=== PATIENT | female | born 1970 | race Caucasian/White ===

== ENCOUNTER 2020-09-17 15:11 | Emergency (ER) | payer BC, MEDICAID ==
--- NOTE | 2020-09-17 15:44 | EDM.PDOC ---
ED HPI GENERAL MEDICAL PROBLEM - General Chief Complaint: General Stated Complaint: NAUSEA/BODY ACHES Time Seen by Provider: 09/17/20 15:41 - History of Present Illness INITIAL COMMENTS - FREE TEXT/NARRATIVE: 50-year-old female presents the emergency room with nausea and generally not feeling well she has generalized aches and pains. This is been going on for about 3-1/2 weeks. She vomited 1 time and that was in route to the emergency room this afternoon so it sounds like she has been getting worse her appetite has been poor she is not been eating or drinking hardly at all. She is generally achy all over, she does this when she has the flu. Patient denies any pain no shortness of breath no cough. 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 She has not had vaccines she has not had an influenza vaccine. 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: Endocrine/Metabolic History: Reports: Hypoparathyroidism, Obesity/BMI 30+ Other Endocrine/Metabolic History: iodine treatment on thyroid - Infectious Disease History Infectious Disease History: Reports: Chicken Pox - Past Surgical History GI Surgical History: Reports: Cholecystectomy Female Surgical History: Reports: Tubal Ligation Social & Family History - Family History Family Medical History: No Pertinent Family History - Tobacco Use Tobacco Use Status *Q: Never Tobacco User - Caffeine Use Caffeine Use: Reports: None - Recreational Drug Use Recreational Drug Use: No ED ROS GENERAL - Review of Systems Review Of Systems: See Below Constitutional: Reports: No Symptoms HEENT: Reports: No Symptoms Respiratory: Reports: No Symptoms Cardiovascular: Reports: No Symptoms Endocrine: Reports: No Symptoms GI/Abdominal: Reports: Decreased Appetite, Nausea, Vomiting. Denies: Constipation, Diarrhea : Reports: No Symptoms Musculoskeletal: Reports: Other (She has generalized achiness.). Denies: No Symptoms Skin: Reports: No Symptoms Neurological: Reports: No Symptoms Psychiatric: Reports: No Symptoms Hematologic/Lymphatic: Reports: No Symptoms Immunologic: Reports: No Symptoms ED EXAM, GENERAL - Physical Exam Exam: See Below Exam Limited By: Uncooperative General Appearance: Alert, No Apparent Distress Eye Exam: Bilateral Eye: Normal Inspection Ears: Normal External Exam, Normal Canal, Hearing Grossly Normal, Normal TMs Nose: Normal Inspection, Normal Mucosa, No Blood Throat/Mouth: Normal Inspection, Normal Lips, Normal Gums, Normal Oropharynx, Normal Voice, No Airway Compromise. No: Normal Teeth Head: Atraumatic, Normocephalic Neck: Normal Inspection, Supple, Non-Tender. No: Lymphadenopathy (L), Lymphadenopathy (R) Respiratory/Chest: No Respiratory Distress, Lungs Clear, Normal Breath Sounds Cardiovascular: No Edema, No Murmur, Tachycardia (Mild tachycardia right around 100) GI/Abdominal: Normal Bowel Sounds, Soft, Non-Tender, No Distention. No: Guarding, Rigid, Rebound Back Exam: Normal Inspection. No: CVA Tenderness (L), CVA Tenderness (R) Extremities: Normal Inspection, No Pedal Edema Neurological: Alert, Oriented Course - Vital Signs Last Recorded V/S: Last Vital Signs Temp 36.7 C 09/17/20 18:24 Pulse 73 09/17/20 18:24 Resp 16 09/17/20 18:24 BP 130/78 09/17/20 18:24 Pulse Ox 100 09/17/20 18:24 - Orders/Labs/Meds Orders: Active Orders 24 hr Category Date Time Status CULTURE URINE [RM] Stat Lab 09/17/20 17:33 Received Isolation [COMM] Routine Oth 09/17/20 16:03 Ordered Labs: Laboratory Tests 09/17/20 09/17/20 09/17/20 Range/Units 16:15 16:15 16:20 WBC 5.31 (3.98-10.04) K/mm3 RBC 4.93 (3.98-5.22) M/mm3 Hgb 14.1 (11.2-15.7) gm/dl Hct 43.0 (34.1-44.9) % MCV 87.2 (79.4-94.8) fl MCH 28.6 (25.6-32.2) pg MCHC 32.8 (32.2-35.5) g/dl RDW Std Deviation 42.4 (36.4-46.3) fL Plt Count 197 (182-369) K/mm3 MPV 11.3 (9.4-12.3) fl Neut % (Auto) 69.7 (34.0-71.1) % Lymph % (Auto) 17.5 L (19.3-51.7) % [place] % (Auto) 12.2 (4.7-12.5) % Eos % (Auto) 0 L (0.7-5.8) Baso % (Auto) 0.4 (0.1-1.2) % Neut # (Auto) 3.70 (1.56-6.13) K/mm3 Lymph # (Auto) 0.93 L (1.18-3.74) K/mm3 [place] # (Auto) 0.65 H (0.24-0.36) K/mm3 Eos # (Auto) 0.00 L (0.04-0.36) K/mm3 Baso # (Auto) 0.02 (0.01-0.08) K/mm3 Manual Slide Review Normal smear Sodium 142 (136-145) mEq/L Potassium 3.0 L (3.5-5.1) mEq/L Chloride 102 (98-107) mEq/L Carbon Dioxide 27 (21-32) mEq/L Anion Gap 16.0 H (5-15) BUN 10 (7-18) mg/dL Creatinine 0.9 (0.55-1.02) mg/dL Est Cr Clr Drug Dosing 71.91 mL/min Estimated GFR (MDRD) > 60 (>60) mL/min BUN/Creatinine Ratio 11.1 L (14-18) Glucose 101 (74-106) mg/dL Calcium 8.3 L (8.5-10.1) mg/dL Total Bilirubin 0.6 (0.2-1.0) mg/dL AST 36 (15-37) U/L ALT 43 (14-59) U/L Alkaline Phosphatase 60 (46-116) U/L Total Protein 7.6 (6.4-8.2) g/dl Albumin 3.3 L (3.4-5.0) g/dl Globulin 4.3 gm/dL Albumin/Globulin Ratio 0.8 L (1-2) Urine Color (Yellow) Urine Appearance (Clear) Urine pH (5.0-8.0) Ur Specific [place] (1.005-1.030) Urine Protein (Negative) Urine Glucose (UA) (Negative) Urine Ketones (Negative) Urine Occult Blood (Negative) Urine Nitrite (Negative) Urine Bilirubin (Negative) Urine Urobilinogen (0.2-1.0) Ur Leukocyte Esterase (Negative) Urine RBC (0-5) /hpf Urine WBC (0-5) /hpf Ur Squamous Epith Cells (0-5) /hpf Urine Bacteria (FEW) /hpf Urine Mucus (FEW) /hpf Influenza Type A RNA Negative (NEGATIVE) Influenza Type B RNA Negative (NEGATIVE) SARS-CoV-2 RNA (CORNELIO) Positive H (NEGATIVE) 09/17/20 Range/Units 17:33 WBC (3.98-10.04) K/mm3 RBC (3.98-5.22) M/mm3 Hgb (11.2-15.7) gm/dl Hct (34.1-44.9) % MCV (79.4-94.8) fl MCH (25.6-32.2) pg MCHC (32.2-35.5) g/dl RDW Std Deviation (36.4-46.3) fL Plt Count (182-369) K/mm3 MPV (9.4-12.3) fl Neut % (Auto) (34.0-71.1) % Lymph % (Auto) (19.3-51.7) % [place] % (Auto) (4.7-12.5) % Eos % (Auto) (0.7-5.8) Baso % (Auto) (0.1-1.2) % Neut # (Auto) (1.56-6.13) K/mm3 Lymph # (Auto) (1.18-3.74) K/mm3 [place] # (Auto) (0.24-0.36) K/mm3 Eos # (Auto) (0.04-0.36) K/mm3 Baso # (Auto) (0.01-0.08) K/mm3 Manual Slide Review Sodium (136-145) mEq/L Potassium (3.5-5.1) mEq/L Chloride (98-107) mEq/L Carbon Dioxide (21-32) mEq/L Anion Gap (5-15) BUN (7-18) mg/dL Creatinine (0.55-1.02) mg/dL Est Cr Clr Drug Dosing mL/min Estimated GFR (MDRD) (>60) mL/min BUN/Creatinine Ratio (14-18) Glucose (74-106) mg/dL Calcium (8.5-10.1) mg/dL Total Bilirubin (0.2-1.0) mg/dL AST (15-37) U/L ALT (14-59) U/L Alkaline Phosphatase (46-116) U/L Total Protein (6.4-8.2) g/dl Albumin (3.4-5.0) g/dl Globulin gm/dL Albumin/Globulin Ratio (1-2) Urine Color Yellow (Yellow) Urine Appearance Slt cloudy H (Clear) Urine pH 8.5 H (5.0-8.0) Ur Specific Juda 1.020 (1.005-1.030) Urine Protein 1+ H (Negative) Urine Glucose (UA) Negative (Negative) Urine Ketones 2+ H (Negative) Urine Occult Blood Trace-intact H (Negative) Urine Nitrite Negative (Negative) Urine Bilirubin 1+ H (Negative) Urine Urobilinogen >=8.0 H (0.2-1.0) Ur Leukocyte Esterase 1+ H (Negative) Urine RBC 5-10 H (0-5) /hpf Urine WBC 5-10 H (0-5) /hpf Ur Squamous Epith Cells 10-20 H (0-5) /hpf Urine Bacteria Few (FEW) /hpf Urine Mucus Few (FEW) /hpf Influenza Type A RNA (NEGATIVE) Influenza Type B RNA (NEGATIVE) SARS-CoV-2 RNA (CORNELIO) (NEGATIVE) Meds: Medications Discontinued Medications Generic Name Dose Route Start Last Admin Trade Name Freq PRN Reason Stop Dose Admin Lactated Ringer's 1,000 mls @ 999 mls/hr 09/17/20 16:01 09/17/20 16:15 Ringers, Lactated IV 09/17/20 17:01 999 mls/hr .BOLUS ONE Administration Lactated Ringer's 1,000 mls @ 999 mls/hr 09/17/20 16:02 09/17/20 16:15 Ringers, Lactated IV 09/17/20 17:02 999 mls/hr .BOLUS ONE Administration Ondansetron HCl 4 mg 09/17/20 16:02 09/17/20 16:15 Zofran IVPUSH 09/17/20 16:03 4 mg ONETIME ONE Administration Potassium Chloride 20 meq 09/17/20 18:05 09/17/20 18:24 Klor-Con M20 PO 09/17/20 18:06 20 meq ONETIME ONE Administration - Re-Assessments/Exams Free Text/Narrative Re-Assessment/Exam: 09/17/20 18:19 She was given IV fluids that she was mildly tachycardic and without significant p.o. intake for several weeks. She was also given a single dose of Zofran feels much better labs were checked remarkable for some hypokalemia at 3.0. Influenza screening was negative Covid did come back positive which could very well be causing her symptoms. At this point we will discharge the patient with prescription for Zofran oral potassium and recommend she start magnesium oxide. 09/17/20 18:31 Analysis is contaminated. I discussed this with the patient she wants to get going we will wait on culture and sensitivity but the patient is not having any UTI-like symptoms at this time. Patient agrees with holding off on antibiotics. Departure - Departure Time of Disposition: 18:27 Disposition: Home, Self-Care 01 Clinical Impression: COVID-19 - Discharge Information Prescriptions: Potassium Chloride [Klor-Con M20] 20 meq PO TID #8 tab.er Ondansetron [Zofran Odt] 8 mg PO Q6H PRN #8 tab.rapdis PRN Reason: Nausea/Vomiting Referrals: PCP,None [Primary Care Provider] - Forms: ED Department Discharge Additional Instructions: Return to the emergency room with any questions problems or worsening symptoms. Take the Zofran 1/2 to 1 tablet every 6 hours as needed for nausea and vomiting. Take the potassium 1 preferably every 8 hours however if you need to cut it back to every 12 hours that is okay but take them until they are all gone. 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 You have COVID-19. It is essential that you self isolate at home. You should stay home in isolation for 1 week after your symptoms have completely resolved and you are not taking any medication for aches pains nausea or any other symptoms. Sepsis Event Note (ED) - Evaluation Sepsis Screening Result: No Definite Risk - Focused Exam Vital Signs: Vital Signs Temp Pulse Resp BP Pulse Ox 09/17/20 18:24 36.7 C 73 16 130/78 100 09/17/20 15:21 36.9 C 104 H 14 133/64 94 L - My Orders Last 24 Hours: My Active Orders 09/17/20 16:03 Isolation [COMM] Routine 09/17/20 17:33 CULTURE URINE [RM] Stat - Assessment/Plan Last 24 Hours: My Active Orders 09/17/20 16:03 Isolation [COMM] Routine 09/17/20 17:33 CULTURE URINE [RM] Stat
[2020-09-17] MEDS ORDERED: Lactated Ringers 1,000 ML IV ONE ×2 (16:01→16:02)
[2020-09-17] MEDS ORDERED: Ondansetron 4 MG/2 ML SDV IVPUSH ONE (16:02)
[2020-09-17 17:10] LABS: CORONAVIRUS COVID-19 NAA POSITIVE (NEGATIVE)
[2020-09-17] MEDS ORDERED: Potassium Chloride 20 MEQ Tab.ER PO ONE (18:05)
== END 2020-09-17 18:48 | disposition home or self-care (01) ==
LOC: JD.ED 15:11
DX: U07.1 COVID-19 (principal); E66.9 Obesity, unspecified; Z68.29 Body mass index [BMI] 29.0-29.9, adult
CPT/HCPCS: 0240U; 36415; 80053; 81001; 85025; 87086; 96361; 96374; 99284; A9270; J2405; J7120

== ENCOUNTER 2020-09-23 07:12 | Emergency (ER) | payer MEDICAID ==
[2020-09-23] MEDS ORDERED: Ondansetron 4 MG Tab.DIS PO ONE (07:46)
[2020-09-23] MEDS ORDERED: Ketorolac 30 MG/ML SDV IM ONE (07:46)
--- NOTE | 2020-09-23 08:25 | EDM.PDOC ---
ED HPI GENERAL MEDICAL PROBLEM - General Chief Complaint: Back Pain or Injury Stated Complaint: COVID + Time Seen by Provider: 09/23/20 07:31 Source of Information: Reports: Patient, RN Notes Reviewed - History of Present Illness INITIAL COMMENTS - FREE TEXT/NARRATIVE: 50 yr old female that is having L lower back pain. States this started during the night. Has had back problems in the past. Does not radiate to leg, abd or groin. Has not taken anything for it. She has not been feeling well for "several weeks" Was seen here in the ED 6 days ago, tested positive for covid at that time. Denies bladder sx today. Continues to feel a lot of fatigue, occasional cough. 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: Musculoskeletal History: Reports: Fracture Other Musculoskeletal History: right broken ankle Endocrine/Metabolic History: Reports: Hypoparathyroidism, Obesity/BMI 30+ Other Endocrine/Metabolic History: iodine treatment on thyroid - Infectious Disease History Infectious Disease History: Reports: Chicken Pox, Novel Coronavirus - Past Surgical History HEENT Surgical History: Reports: Oral Surgery Other HEENT Surgeries/Procedures: "several teeth removed" GI Surgical History: Reports: Cholecystectomy Female Surgical History: Reports: Tubal Ligation Social & Family History - Family History Family Medical History: No Pertinent Family History - Tobacco Use Tobacco Use Status *Q: Never Tobacco User Second Hand Smoke Exposure: Yes - Caffeine Use Caffeine Use: Reports: Soda - Recreational Drug Use Recreational Drug Use: No ED ROS GENERAL - Review of Systems Review Of Systems: See Below Constitutional: Reports: Chills. Denies: Fever HEENT: Reports: No Symptoms Respiratory: Reports: Cough. Denies: Shortness of Breath Cardiovascular: Denies: Chest Pain GI/Abdominal: Reports: Nausea. Denies: Abdominal Pain, Diarrhea, Vomiting Musculoskeletal: Reports: Back Pain Skin: Denies: Rash Neurological: Reports: Dizziness ED EXAM,LOWER BACK PAIN/INJURY - Physical Exam Exam: See Below General Appearance: Alert, No Apparent Distress Head: Atraumatic Neck: Supple Respiratory/Chest: No Respiratory Distress, Lungs Clear, Normal Breath Sounds Cardiovascular: Regular Rate, Rhythm GI/Abdominal: Soft, Non-Tender Back Exam: CVA Tenderness (L), Paraspinal Tenderness (L low back) Extremities: Normal Inspection Neurological: Alert, No Motor/Sensory Deficits Skin Exam: Warm, Dry, Normal Color Course - Vital Signs Last Recorded V/S: Last Vital Signs Temp 97.6 F 09/23/20 07:28 Pulse 60 09/23/20 07:28 Resp 16 09/23/20 07:28 BP 110/63 09/23/20 07:28 Pulse Ox 99 09/23/20 07:28 - Orders/Labs/Meds Labs: Laboratory Tests 09/23/20 09/23/20 09/23/20 Range/Units 08:16 09:01 09:01 WBC 7.56 (3.98-10.04) K/mm3 RBC 4.97 (3.98-5.22) M/mm3 Hgb 14.0 (11.2-15.7) gm/dl Hct 44.0 (34.1-44.9) % MCV 88.5 (79.4-94.8) fl MCH 28.2 (25.6-32.2) pg MCHC 31.8 L (32.2-35.5) g/dl RDW Std Deviation 42.2 (36.4-46.3) fL Plt Count 311 D (182-369) K/mm3 MPV 11.0 (9.4-12.3) fl Neut % (Auto) 83.1 H (34.0-71.1) % Lymph % (Auto) 10.3 L (19.3-51.7) % [place] % (Auto) 5.0 (4.7-12.5) % Eos % (Auto) 0.8 (0.7-5.8) Baso % (Auto) 0.5 (0.1-1.2) % Neut # (Auto) 6.28 H (1.56-6.13) K/mm3 Lymph # (Auto) 0.78 L (1.18-3.74) K/mm3 [place] # (Auto) 0.38 H (0.24-0.36) K/mm3 Eos # (Auto) 0.06 (0.04-0.36) K/mm3 Baso # (Auto) 0.04 (0.01-0.08) K/mm3 Manual Slide Review Normal smear C-Reactive Protein 1.7 H* (<1.0) mg/dL Urine Color Dark yellow (Yellow) Urine Appearance Cloudy H (Clear) Urine pH 7.0 (5.0-8.0) Ur Specific [place] 1.020 (1.005-1.030) Urine Protein 2+ H (Negative) Urine Glucose (UA) Negative (Negative) Urine Ketones Negative (Negative) Urine Occult Blood 3+ H (Negative) Urine Nitrite Negative (Negative) Urine Bilirubin 1+ H (Negative) Urine Urobilinogen 0.2 (0.2-1.0) Ur Leukocyte Esterase Negative (Negative) Urine RBC 75-100 H (0-5) /hpf Urine WBC 0-5 (0-5) /hpf Ur Squamous Epith Cells 0-5 (0-5) /hpf Urine Bacteria Few (FEW) /hpf Urine Mucus Few (FEW) /hpf Meds: Medications Discontinued Medications Generic Name Dose Route Start Last Admin Trade Name Harlan PRN Reason Stop Dose Admin Ketorolac Tromethamine 30 mg 09/23/20 07:46 09/23/20 07:52 Toradol IM 09/23/20 07:47 30 mg ONETIME ONE Administration Ondansetron HCl 4 mg 09/23/20 07:46 09/23/20 07:52 Zofran Odt PO 09/23/20 07:47 4 mg ONETIME ONE Administration - Re-Assessments/Exams Free Text/Narrative Re-Assessment/Exam: 09/24/20 07:14 Pt has a lot of RBc's in her urine but reported to be having her MP. No UTI, WBC nl. Have given torodol IM and that has helped her. Discharge instr. as documented. Departure - Departure Time of Disposition: 10:37 Disposition: Home, Self-Care 01 Condition: Fair Clinical Impression: Back pain Qualifiers: Back pain location: low back pain Chronicity: acute Back pain laterality: left Sciatica presence: without sciatica Qualified Code(s): M54.5 - Low back pain - Discharge Information Instructions: Acute Back Pain, Adult Referrals: PCP,None [Primary Care Provider] - Forms: ED Department Discharge Additional Instructions: Rest back, no heavy lifting, take ramila 3 to 4 times daily for discomfort as needed. Alternate heat and ice as needed. Follow up with your regular medical provider in 5 to 7 days if not back to normal as expected. Sepsis Event Note (ED) - Evaluation Sepsis Screening Result: No Definite Risk
== END 2020-09-23 11:00 | disposition home or self-care (01) ==
LOC: JD.ED 07:12
DX: M54.5 Low back pain (principal); E20.9 Hypoparathyroidism, unspecified; E66.9 Obesity, unspecified; Z68.37 Body mass index [BMI] 37.0-37.9, adult; Z77.22 Contact with and (suspected) exposure to environmental tobacco smoke (acute) (chronic); Z86.16 Personal history of COVID-19
CPT/HCPCS: 36415; 81001; 85025; 86140; 96372; 99283; A9270; J1885

== ENCOUNTER 2020-09-27 19:01 | Inpatient (IN) | payer MEDICAID ==
[2020-09-27] MEDS ORDERED: Sodium Chloride 0.9% 10 ML Syringe FLUSH PRN (19:35)
[2020-09-27] MEDS ORDERED: Ondansetron 4 MG/2 ML SDV IVPUSH ONE (19:35)
[2020-09-27] MEDS ORDERED: HYDROmorphone 0.5 MG/0.5 ML Syringe IVPUSH ONE (19:36)
[2020-09-27] MEDS ORDERED: Sodium Chloride 0.9% 1,000 ML IV SCH (19:45)
--- NOTE | 2020-09-27 19:46 | EDM.PDOC ---
ED HPI GENERAL MEDICAL PROBLEM - General Chief Complaint: Respiratory Problem Stated Complaint: sob covid positive cough Time Seen by Provider: 09/27/20 19:25 Source of Information: Reports: Patient History Limitations: Reports: No Limitations - History of Present Illness INITIAL COMMENTS - FREE TEXT/NARRATIVE: The patient presents with back pain, chest pain and shortness of breath. This started a few days ago but she has not been feeling good since August 31. She was having generalized weakness, fever, chills, and not feeling well. She was seen here about 2 weeks ago and was found to be COVID 19 positive. She has been at home and the state has cleared her but she feels worse. She has back pain and now she developed chest pain with shortness of breath. She has some coughing at times and she has a fever and chills at times. She has generalized weakness and just does not feel well. She has no medical problems such as heart disease, diabetes, hypertension or hypercholesterolemia. She has no history of DVT or PE. She does not smoke. She has no history of asthma or COPD. Onset: Gradual Duration: Week(s): Location: Reports: Chest, Back Quality: Reports: Sharp Severity: Moderate Improves with: Reports: None Worsens with: Reports: None Associated Symptoms: Reports: Chest Pain, Cough, Fever/Chills, Shortness of Breath. 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: Musculoskeletal History: Reports: Fracture Other Musculoskeletal History: right broken ankle Endocrine/Metabolic History: Reports: Hypoparathyroidism, Obesity/BMI 30+ Other Endocrine/Metabolic History: iodine treatment on thyroid - Infectious Disease History Infectious Disease History: Reports: Chicken Pox, Novel Coronavirus - Past Surgical History HEENT Surgical History: Reports: Oral Surgery Other HEENT Surgeries/Procedures: "several teeth removed" GI Surgical History: Reports: Cholecystectomy Female Surgical History: Reports: Tubal Ligation Social & Family History - Family History Family Medical History: No Pertinent Family History - Tobacco Use Tobacco Use Status *Q: Never Tobacco User - Caffeine Use Caffeine Use: Reports: Soda - Recreational Drug Use Recreational Drug Use: No ED ROS GENERAL - Review of Systems Review Of Systems: See Below Constitutional: Reports: Fever, Chills, Malaise, Weakness, Fatigue HEENT: Reports: No Symptoms Respiratory: Reports: Shortness of Breath, Cough Cardiovascular: Reports: Chest Pain Endocrine: Reports: No Symptoms GI/Abdominal: Reports: No Symptoms : Reports: No Symptoms Musculoskeletal: Reports: Muscle Stiffness Skin: Reports: No Symptoms ED EXAM, GENERAL - Physical Exam Exam: See Below Exam Limited By: No Limitations General Appearance: Alert, No Apparent Distress Ears: Normal External Exam Nose: Normal Inspection Head: Atraumatic, Normocephalic Neck: Normal Inspection Respiratory/Chest: No Respiratory Distress, Lungs Clear, Normal Breath Sounds Cardiovascular: Regular Rate, Rhythm, No Edema, No Murmur GI/Abdominal: Soft, Non-Tender, No Organomegaly, No Mass Back Exam: Normal Inspection Extremities: Normal Inspection #1 Interpretation EKG Date: 09/27/20 Time: 20:10 Rhythm: NSR Rate (Beats/Min): 92 [place]: Normal P-Wave: Present QRS: Normal ST-T: Normal QT: Prolonged Course - Vital Signs Last Recorded V/S: Last Vital Signs Temp 97.6 F 09/27/20 19:13 Pulse 107 H 09/27/20 19:13 Resp 20 09/27/20 19:13 BP 137/85 09/27/20 19:13 Pulse Ox 96 09/27/20 19:13 - Orders/Labs/Meds Orders: Active Orders 24 hr Category Date Time Status Cardiac Monitoring [RC] . DIRECTED Care 09/27/20 19:35 Active EKG Documentation Completion [RC] STAT Care 09/27/20 19:36 Active Peripheral IV Care [RC] . DIRECTED Care 09/27/20 19:36 Active Ang Chest [CT] Stat Exams 09/27/20 19:37 Taken CULTURE BLOOD [BC] Stat Lab 09/27/20 21:47 Ordered CULTURE BLOOD [BC] Stat Lab 09/27/20 21:47 Ordered LACTIC ACID W/ REFLEX [LACTATE SEPSIS W/ REFLEX] [CHEM] Lab 09/27/20 21:47 Ordered Stat TSH [CHEM] Stat Lab 09/27/20 21:54 Ordered Azithromycin [Zithromax] 500 mg Med 09/27/20 21:48 Active Sodium Chloride 0.9% [Normal Saline (AdvBag)] 250 ml IV ONETIME Sodium Chloride 0.9% [Normal Saline] 1,000 ml Med 09/27/20 19:45 Active IV .BOLUS Sodium Chloride 0.9% [Normal Saline] 100 ml Med 09/27/20 20:00 Active IV ASDIRECTED Sodium Chloride 0.9% [Saline Flush] Med 09/27/20 20:00 Active 10 ml FLUSH ASDIRECTED Sodium Chloride 0.9% [Saline Flush] Med 09/27/20 19:35 Active 10 ml FLUSH ASDIRECTED PRN cefTRIAXone [Rocephin] 2 gm Med 09/27/20 21:47 Active Sodium Chloride 0.9% [Normal Saline] 100 ml IV ONETIME Blood Culture x2 Reflex Set [OM.PC] Stat Oth 09/27/20 21:47 Ordered ED Antiemetic Medication Reflex [OM.PC] Stat Oth 09/27/20 19:36 Ordered Peripheral IV Insertion Adult [OM.PC] Stat Oth 09/27/20 19:35 Ordered Labs: Laboratory Tests 09/27/20 09/27/20 09/27/20 Range/Units 20:05 20:05 20:05 WBC 15.98 H (3.98-10.04) K/mm3 RBC 4.86 (3.98-5.22) M/mm3 Hgb 13.9 (11.2-15.7) gm/dl Hct 42.8 (34.1-44.9) % MCV 88.1 (79.4-94.8) fl MCH 28.6 (25.6-32.2) pg MCHC 32.5 (32.2-35.5) g/dl RDW Std Deviation 42.0 (36.4-46.3) fL Plt Count 422 H D (182-369) K/mm3 MPV 10.7 (9.4-12.3) fl Neut % (Auto) 80.3 H (34.0-71.1) % Lymph % (Auto) 8.5 L (19.3-51.7) % [place] % (Auto) 10.8 (4.7-12.5) % Eos % (Auto) 0.1 L (0.7-5.8) Baso % (Auto) 0.1 (0.1-1.2) % Neut # (Auto) 12.84 H (1.56-6.13) K/mm3 Lymph # (Auto) 1.36 (1.18-3.74) K/mm3 [place] # (Auto) 1.72 H (0.24-0.36) K/mm3 Eos # (Auto) 0.01 L (0.04-0.36) K/mm3 Baso # (Auto) 0.02 (0.01-0.08) K/mm3 Manual Slide Review Abnormal smear D-Dimer, Quantitative 1.06 H (0.19-0.50) mg/L Sodium 140 (136-145) mEq/L Potassium 3.5 (3.5-5.1) mEq/L Chloride 101 (98-107) mEq/L Carbon Dioxide 28 (21-32) mEq/L Anion Gap 14.5 (5-15) BUN 11 (7-18) mg/dL Creatinine 0.9 (0.55-1.02) mg/dL Est Cr Clr Drug Dosing 69.23 mL/min Estimated GFR (MDRD) > 60 (>60) mL/min BUN/Creatinine Ratio 12.2 L (14-18) Glucose 115 H (74-106) mg/dL Calcium 8.8 (8.5-10.1) mg/dL Magnesium 2.0 (1.8-2.4) mg/dl Total Bilirubin 0.7 (0.2-1.0) mg/dL AST 23 (15-37) U/L ALT 44 (14-59) U/L Alkaline Phosphatase 66 (46-116) U/L Troponin I < 0.017 (0.00-0.056) ng/mL C-Reactive Protein 23.6 H* (<1.0) mg/dL Total Protein 7.9 (6.4-8.2) g/dl Albumin 3.1 L (3.4-5.0) g/dl Globulin 4.8 gm/dL Albumin/Globulin Ratio 0.7 L (1-2) - Re-Assessments/Exams Free Text/Narrative Re-Assessment/Exam: 09/27/20 19:46 I ordered an IV NS 1L bolus, zofran 4mg IV, dilaudid 0.5mg IV, labs, EKG and CT angio. 09/27/20 21:57 Her EKG shows a NSR with no acute changes. She has a prolonged QT interval. Her WBC was elevated at 15.98. Her D-dimer is elevated at 1.06. Her troponin is negative. Her CRP is elevated at 23.6. Her CT shows an occlusive filling defect in a single segmental branch of the left lower lobe pulmonary artery. Small clot burden. No evidence of right heart strain. Left hilar mass which narrows the left lower lobe bronchus, concerning for neoplasm. There is associated mediastinal and hilar adenopathy. Consolidation in the left lower lobe which could represent pneumonia or postobstructive pneumonitis. 2.6 X 2.1 partially calcified left lobe thyroid lesion. Recommend thyroid US. 6mm right upper lobe pulmonary nodule. I ordered eliquis 5mg by mouth. I also ordered blood cultures, lactic acid, and rocephin. I feel she may need to be admitted. I called Dr Giang and he agreed to the admission. I was going to add some zithromax IV but her QT is prolonged and I already gave her zofran. I have also ordered a TSH. She has a thyroid lesion. She says in the past she had hyperthyroidism and had treatment for that and it has not been a problem. 09/27/20 22:04 The patient is not hypoxic so she will be admitted to observation. 09/27/20 22:04 I asked her again is she ever smoked and she said maybe 5 cigarettes total. Departure - Departure Time of Disposition: 22:05 Disposition: Refer to Observation Condition: Fair Clinical Impression: Mass of left lung, Nodule of left lung, Thyroid lesion Pneumonia Qualifiers: Pneumonia type: due to unspecified organism Laterality: left Lung location: lower lobe of lung Qualified Code(s): J18.9 - Pneumonia, unspecified organism Pulmonary embolism Qualifiers: Pulmonary embolism type: other Chronicity: acute Acute cor pulmonale presence: without acute cor pulmonale Qualified Code(s): I26.99 - Other pulmonary embolism without acute cor pulmonale - Discharge Information Referrals: PCP,None [Primary Care Provider] - Forms: ED Department Discharge Sepsis Event Note (ED) - Evaluation Sepsis Screening Result: No Definite Risk - Focused Exam Vital Signs: Vital Signs Temp Pulse Resp BP Pulse Ox 09/27/20 19:13 97.6 F 107 H 20 137/85 96 - My Orders Last 24 Hours: My Active Orders 09/27/20 19:35 Cardiac Monitoring [RC] . DIRECTED Sodium Chloride 0.9% [Saline Flush] 10 ml FLUSH ASDIRECTED PRN Peripheral IV Insertion Adult [OM.PC] Stat 09/27/20 19:36 EKG Documentation Completion [RC] STAT Peripheral IV Care [RC] . DIRECTED ED Antiemetic Medication Reflex [OM.PC] Stat 09/27/20 19:37 Ang Chest [CT] Stat 09/27/20 19:45 Sodium Chloride 0.9% [Normal Saline] 1,000 ml IV .BOLUS 09/27/20 20:00 Sodium Chloride 0.9% [Normal Saline] 100 ml IV ASDIRECTED Sodium Chloride 0.9% [Saline Flush] 10 ml FLUSH ASDIRECTED 09/27/20 21:47 CULTURE BLOOD [BC] Stat CULTURE BLOOD [BC] Stat LACTIC ACID W/ REFLEX [LACTATE SEPSIS W/ REFLEX] [CHEM] Stat cefTRIAXone [Rocephin] 2 gm Sodium Chloride 0.9% [Normal Saline] 100 ml IV ONETIME Blood Culture x2 Reflex Set [OM.PC] Stat 09/27/20 21:48 Azithromycin [Zithromax] 500 mg Sodium Chloride 0.9% [Normal Saline (AdvBag)] 250 ml IV ONETIME 09/27/20 21:54 TSH [CHEM] Stat - Assessment/Plan Last 24 Hours: My Active Orders 09/27/20 19:35 Cardiac Monitoring [RC] . DIRECTED Sodium Chloride 0.9% [Saline Flush] 10 ml FLUSH ASDIRECTED PRN Peripheral IV Insertion Adult [OM.PC] Stat 09/27/20 19:36 EKG Documentation Completion [RC] STAT Peripheral IV Care [RC] . DIRECTED ED Antiemetic Medication Reflex [OM.PC] Stat 09/27/20 19:37 Ang Chest [CT] Stat 09/27/20 19:45 Sodium Chloride 0.9% [Normal Saline] 1,000 ml IV .BOLUS 09/27/20 20:00 Sodium Chloride 0.9% [Normal Saline] 100 ml IV ASDIRECTED Sodium Chloride 0.9% [Saline Flush] 10 ml FLUSH ASDIRECTED 09/27/20 21:47 CULTURE BLOOD [BC] Stat CULTURE BLOOD [BC] Stat LACTIC ACID W/ REFLEX [LACTATE SEPSIS W/ REFLEX] [CHEM] Stat cefTRIAXone [Rocephin] 2 gm Sodium Chloride 0.9% [Normal Saline] 100 ml IV ONETIME Blood Culture x2 Reflex Set [OM.PC] Stat 09/27/20 21:48 Azithromycin [Zithromax] 500 mg Sodium Chloride 0.9% [Normal Saline (AdvBag)] 250 ml IV ONETIME 09/27/20 21:54 TSH [CHEM] Stat
[2020-09-27] MEDS ORDERED: Iopamidol 755 Mg/ML 100 ML Bottle IVPUSH ONE (19:52)
[2020-09-27] MEDS ORDERED: Sodium Chloride 0.9% 100 ML IV SCH (20:00)
[2020-09-27] MEDS ORDERED: Sodium Chloride 0.9% 10 ML Syringe FLUSH SCH (20:00)
[2020-09-27] MEDS ORDERED: cefTRIAXone 2 GM in Sodium Chloride 0.9% 100 ML IV ONE (21:47)
[2020-09-27] MEDS ORDERED: Apixaban 5 MG Tab PO ONE (21:48)
[2020-09-27] MEDS ORDERED: Azithromycin 500 MG in Sodium Chloride 0.9% 250 ML IV ONE (21:48)
[2020-09-27] MEDS ORDERED: HYDROmorphone 1 MG/ML Syringe IVPUSH ONE (22:01)
[2020-09-27] MEDS ORDERED: Ibuprofen 600 MG Tab PO ONE (23:06)
[2020-09-28] MEDS ORDERED: HYDROmorphone 1 MG/ML Syringe IVPUSH PRN (00:39)
--- NOTE | 2020-09-28 07:26 | PCM.HP.2 ---
H&P History of Present Illness - General Date of Service: 09/28/20 Admit Problem/Dx: Admission Diagnosis/Problem Admission Diagnosis/Problem Pneumonia Source of Information: Patient, Old Records, Provider, RN, RN Notes Reviewed History Limitations: Reports: No Limitations - History of Present Illness Initial Comments - Free Text/Narative: This is a 50-year-old female who presents to ED on the evening hours of 09/27/2020 complaining of back pain, chest pain, and shortness of breath. She reports the symptoms started a few days ago however she has been feeling poorly since F ebruary 10. She states that she has had worsening generalized weakness, fever, chills, and not feeling well. Was diagnosed with COVID-19 about 2 weeks ago and has been home since then. The state has cleared her from her quarantine but she continues to feel bad. She reports she has back pain and has now developed chest pain and shortness of breath. She reports she has coughing fits at times and has had a fever and chills at home. She reports generalized weakness and just does not feel well. Denies any prior heart disease, diabetes, hypertension, or hypercholesterolemia. No history of DVT, PE, asthma, or COPD. She does not smoke. In the ED twelve-lead EKG is obtained showing a sinus rhythm at 92 bpm with a prolonged QTC. There are no signs of any ischemia. Temp is 97.6. Pulse 107. Respirations 20. Blood pressure 137/85. Pulse ox 96%. Labs are obtained showing a leukocytosis of 15.98. Hemoglobin 13.9. She is normocytic. Platelets are elevated at 422,000. Neutrophils are elevated at 12.84. D-dimer is 1.06. Sodium 140. Potassium 3.5. Chloride 101. Carbon oxide 28. Anion gap is 14.5. BUN is 11. Creatinine 0.9. GFR greater than 60. Glucose is 115. Calcium 8.8. Magnesium 2.0. Bilirubin 0.7. AST is 23, ALT 44, alkaline phosphatase 66. Troponin is less than 0.017. CRP is very high at 23.6. Albumin is low at 3.1. Lactic acid is low at 0.9 and TSH is 1.745. She is given IV fluids, Zofran for nausea, Dilaudid for pain, and a CT angiogram of her chest is obtained.This is interpreted by Dr. Adamson, radiologist, as: 1. Possible minimal pulmonary embolism within a subsegmental branch within the left lower lung. 2. Focal consolidation within the left lower chest possibly due to infarct or pneumonia. 3. 6 mm nodule within the right upper lung as well as mild mediastinal and hilar adenopathy which is nonspecific. Follow-up contrast- enhanced study could be considered in 6 months. This would occur in March 2021. 4. Other findings as noted above which are nonacute. Cultures were obtained and patient started on Rocephin. Plan will start azithromycin but she was given Zofran and her QT is already prolonged. Per the ED note patient is aware of her thyroid problems that she has a history of hyperthyroidism which was treated with iodine. She carries a history of hypoparathyroidism, obesity, iodine treatment of thyroid, prior Covid infection. She is a full code. She reportedly does not have a primary care provider. Left Chest Pain Score (Numeric/FACES): 8 - Related Data Allergies/Adverse Reactions: Allergies Allergy/AdvReac Type Severity Reaction Status Date / Time acetaminophen [From Percocet] AdvReac Severe Stomach Verified 09/27/20 19:16 Ache naproxen AdvReac Severe Stomach Verified 09/27/20 19:16 Ache oxycodone [From Percocet] AdvReac Severe Stomach Verified 09/27/20 19:16 Ache Home Medications: Home Meds Ondansetron [Zofran Odt] 8 mg PO Q6H PRN #8 tab.rapdis 09/17/20 [Rx] Magnesium Oxide 400 mg PO DAILY 09/27/20 [History] Past Medical History [employer] History: Reports: Musculoskeletal History: Reports: Fracture Other Musculoskeletal History: right broken ankle Endocrine/Metabolic History: Reports: Hypoparathyroidism, Obesity/BMI 30+ Other Endocrine/Metabolic History: iodine treatment on thyroid - Infectious Disease History Infectious Disease History: Reports: Chicken Pox, Novel Coronavirus - Past Surgical History HEENT Surgical History: Reports: Oral Surgery Other HEENT Surgeries/Procedures: "several teeth removed" GI Surgical History: Reports: Cholecystectomy Female Surgical History: Reports: Tubal Ligation Other Neurological Surgeries/Procedures: "undiagnosed depression" Social & Family History - Family History Family Medical History: No Pertinent Family History - Tobacco Use Tobacco Use Status *Q: Never Tobacco User - Caffeine Use Caffeine Use: Reports: Soda - Recreational Drug Use Recreational Drug Use: No H&P Review of Systems - Review of Systems: Review Of Systems: See Below General: Reports: Malaise, Weakness, Fatigue, Decreased Appetite, Weight Loss. Denies: Fever, Chills HEENT: Reports: No Symptoms. Denies: Headaches, Sore Throat Pulmonary: Reports: Shortness of Breath, Pleuritic Chest Pain, Cough. Denies: Wheezing, Sputum Cardiovascular: Reports: Dyspnea on Exertion. Denies: Chest Pain, Palpitations, Edema Gastrointestinal: Reports: No Symptoms. Denies: Abdominal Pain, Constipation, Diarrhea, Nausea, Vomiting Genitourinary: Reports: No Symptoms. Denies: Pain Musculoskeletal: Reports: Back Pain Skin: Reports: No Symptoms. Denies: Cyanosis Psychiatric: Reports: No Symptoms. Denies: Confusion Neurological: Reports: Weakness. Denies: Pre-Existing Deficit, Difficulty Walking, Gait Disturbance Hematologic/Lymphatic: Reports: No Symptoms Immunologic: Reports: No Symptoms Exam - Exam Exam: See Below - Vital Signs Vital Signs: Last Vital Signs Temp 98.2 F 09/28/20 03:55 Pulse 98 09/28/20 03:55 Resp 20 09/28/20 03:55 BP 105/57 L 09/28/20 03:55 Pulse Ox 92 L 09/28/20 03:55 Weight: 229 lb 12.8 oz - Exam Quality Assessment: DVT Prophylaxis. No: Supplemental Oxygen, Urinary Catheter General: Alert, Oriented, Cooperative. No: Mild Distress HEENT: Conjunctiva Clear, EACs Clear, Hearing Intact, Mucosa Moist & [place], Posterior Pharynx Clear, PERRLA Neck: Supple, Trachea Midline, 2 Lungs: Clear to Auscultation, Normal Respiratory Effort, Decreased Breath Sounds Cardiovascular: Regular Rate, Regular Rhythm GI/Abdominal Exam: Normal Bowel Sounds, Soft, Non-Tender, No Distention, No Abnormal Bruit (Female) Exam: Deferred Rectal (Female) Exam: Deferred Back Exam: Normal Inspection, Full Range of Motion, Other (Flank pain) Extremities: Normal Inspection, Normal Range of Motion, Non-Tender, No Pedal Edema, Normal Capillary Refill Peripheral Pulses: 2+: Radial (L), Radial (R), Dorsalis Pedis (L), Dorsalis Pedis (R) Skin: Warm, Dry, Intact Neurological: Cranial Nerves Intact (Grossly ) Neuro Extensive - Mental Status: Alert, Oriented x3 Psychiatric: Alert, Anxious - Patient Data Lab Results Last 24 hrs: Laboratory Results - last 24 hr 09/27/20 09/27/20 09/27/20 Range/Units 20:05 20:05 20:05 WBC 15.98 H (3.98-10.04) K/mm3 RBC 4.86 (3.98-5.22) M/mm3 Hgb 13.9 (11.2-15.7) gm/dl Hct 42.8 (34.1-44.9) % MCV 88.1 (79.4-94.8) fl MCH 28.6 (25.6-32.2) pg MCHC 32.5 (32.2-35.5) g/dl RDW Std Deviation 42.0 (36.4-46.3) fL Plt Count 422 H D (182-369) K/mm3 MPV 10.7 (9.4-12.3) fl Neut % (Auto) 80.3 H (34.0-71.1) % Lymph % (Auto) 8.5 L (19.3-51.7) % Day % (Auto) 10.8 (4.7-12.5) % Eos % (Auto) 0.1 L (0.7-5.8) Baso % (Auto) 0.1 (0.1-1.2) % Neut # (Auto) 12.84 H (1.56-6.13) K/mm3 Lymph # (Auto) 1.36 (1.18-3.74) K/mm3 Day # (Auto) 1.72 H (0.24-0.36) K/mm3 Eos # (Auto) 0.01 L (0.04-0.36) K/mm3 Baso # (Auto) 0.02 (0.01-0.08) K/mm3 Manual Slide Review Abnormal smear D-Dimer, Quantitative 1.06 H (0.19-0.50) mg/L Sodium 140 (136-145) mEq/L Potassium 3.5 (3.5-5.1) mEq/L Chloride 101 (98-107) mEq/L Carbon Dioxide 28 (21-32) mEq/L Anion Gap 14.5 (5-15) BUN 11 (7-18) mg/dL Creatinine 0.9 (0.55-1.02) mg/dL Est Cr Clr Drug Dosing 69.23 mL/min Estimated GFR (MDRD) > 60 (>60) mL/min BUN/Creatinine Ratio 12.2 L (14-18) Glucose 115 H (74-106) mg/dL Lactic Acid (0.4-2.0) mmol/L Calcium 8.8 (8.5-10.1) mg/dL Magnesium 2.0 (1.8-2.4) mg/dl Total Bilirubin 0.7 (0.2-1.0) mg/dL AST 23 (15-37) U/L ALT 44 (14-59) U/L Alkaline Phosphatase 66 (46-116) U/L Troponin I < 0.017 (0.00-0.056) ng/mL C-Reactive Protein 23.6 H* (<1.0) mg/dL Total Protein 7.9 (6.4-8.2) g/dl Albumin 3.1 L (3.4-5.0) g/dl Globulin 4.8 gm/dL Albumin/Globulin Ratio 0.7 L (1-2) TSH 3rd Generation (0.358-3.74) uIU/mL 09/27/20 09/27/20 Range/Units 20:05 22:45 WBC (3.98-10.04) K/mm3 RBC (3.98-5.22) M/mm3 Hgb (11.2-15.7) gm/dl Hct (34.1-44.9) % MCV (79.4-94.8) fl MCH (25.6-32.2) pg MCHC (32.2-35.5) g/dl RDW Std Deviation (36.4-46.3) fL Plt Count (182-369) K/mm3 MPV (9.4-12.3) fl Neut % (Auto) (34.0-71.1) % Lymph % (Auto) (19.3-51.7) % Day % (Auto) (4.7-12.5) % Eos % (Auto) (0.7-5.8) Baso % (Auto) (0.1-1.2) % Neut # (Auto) (1.56-6.13) K/mm3 Lymph # (Auto) (1.18-3.74) K/mm3 Day # (Auto) (0.24-0.36) K/mm3 Eos # (Auto) (0.04-0.36) K/mm3 Baso # (Auto) (0.01-0.08) K/mm3 Manual Slide Review D-Dimer, Quantitative (0.19-0.50) mg/L Sodium (136-145) mEq/L Potassium (3.5-5.1) mEq/L Chloride (98-107) mEq/L Carbon Dioxide (21-32) mEq/L Anion Gap (5-15) BUN (7-18) mg/dL Creatinine (0.55-1.02) mg/dL Est Cr Clr Drug Dosing mL/min Estimated GFR (MDRD) (>60) mL/min BUN/Creatinine Ratio (14-18) Glucose (74-106) mg/dL Lactic Acid 0.9 (0.4-2.0) mmol/L Calcium (8.5-10.1) mg/dL Magnesium (1.8-2.4) mg/dl Total Bilirubin (0.2-1.0) mg/dL AST (15-37) U/L ALT (14-59) U/L Alkaline Phosphatase (46-116) U/L Troponin I (0.00-0.056) ng/mL C-Reactive Protein (<1.0) mg/dL Total Protein (6.4-8.2) g/dl Albumin (3.4-5.0) g/dl Globulin gm/dL Albumin/Globulin Ratio (1-2) TSH 3rd Generation 1.745 (0.358-3.74) uIU/mL Result Diagrams: 09/27/20 20:05 09/27/20 20:05 Ramiro Results Last 24 hrs: Microbiology 09/27/20 22:45 Anaerobic Blood Culture - Final Blood - Venous 09/27/20 22:50 Anaerobic Blood Culture - Final Blood - Venous - Lab Draw Sepsis Event Note - Evaluation Sepsis Screening Result: No Definite Risk - Focused Exam Vital Signs: Vital Signs Temp Temp Pulse Pulse Resp BP BP 09/28/20 03:55 98.2 F 98 20 105/57 L 09/28/20 00:34 09/27/20 23:03 98.8 F 107 H 20 144/82 H 09/27/20 22:55 99.1 F 94 20 133/84 Pulse Ox Pulse Ox 09/28/20 03:55 92 L 09/28/20 00:34 92 L 09/27/20 23:03 91 L 09/27/20 22:55 92 L - Problem List (1) Post-COVID syndrome SNOMED Code(s): 532159789, 296073148591794181 ICD Code: B94.8 - SEQUELAE OF OTH INFECTIOUS AND PARASITIC DISEASES Status: Acute Priority: High Current Visit: Yes (2) Mass of left lung SNOMED Code(s): 364639190 ICD Code: R91.8 - OTHER NONSPECIFIC ABNORMAL FINDING OF LUNG FIELD Status: Acute Priority: High Current Visit: Yes (3) Pneumonia SNOMED Code(s): 796515702 ICD Code: J18.9 - PNEUMONIA, UNSPECIFIED ORGANISM Status: Acute Priority: High Current Visit: Yes Qualifiers: Pneumonia type: due to unspecified organism Laterality: left Lung location: lower lobe of lung Qualified Code(s): J18.9 - Pneumonia, unspecified organism (4) Pulmonary embolism SNOMED Code(s): 99275436 ICD Code: I26.99 - OTHER PULMONARY EMBOLISM WITHOUT ACUTE COR PULMONALE Status: Acute Priority: High Current Visit: Yes Qualifiers: Pulmonary embolism type: other Chronicity: acute Acute cor pulmonale presence: without acute cor pulmonale Qualified Code(s): I26.99 - Other pulmonary embolism without acute cor pulmonale (5) Thyroid lesion SNOMED Code(s): 61041449 ICD Code: E07.89 - OTHER SPECIFIED DISORDERS OF THYROID Status: Acute Priority: High Current Visit: Yes (6) Nodule of left lung SNOMED Code(s): 465162740 ICD Code: R91.1 - SOLITARY PULMONARY NODULE Status: Acute Current Visit: Yes Problem List Initiated/Reviewed/Updated: Yes Orders Last 24hrs: Active Orders 24 hr Category Date Time Status Patient Status [ADT] Routine ADT 09/27/20 22:10 Active Bedrest Bathroom Privileges [RC] ASDIRECTED Care 09/28/20 00:26 Active Cardiac Monitoring [RC] . DIRECTED Care 09/27/20 19:35 Active EKG Documentation Completion [RC] STAT Care 09/27/20 19:36 Active Oxygen Therapy Adult [Oxygen Therapy] [RC] ASDIRECTED Care 09/28/20 00:34 Active Peripheral IV Care [RC] Q2HR Care 09/27/20 19:36 Active Regular Diet [DIET] Diet 09/28/20 Breakfast Active Ang Chest [CT] Stat Exams 09/27/20 19:37 Taken CULTURE BLOOD [BC] Stat Lab 09/27/20 22:45 Results CULTURE BLOOD [BC] Stat Lab 09/27/20 22:50 Results Apixaban [Eliquis] Med 09/28/20 09:00 Active 5 mg PO BID HYDROmorphone [Dilaudid] Med 09/28/20 00:39 Active 1 mg IVPUSH Q2H PRN Sodium Chloride 0.9% [Saline Flush] Med 09/27/20 20:00 Active 10 ml FLUSH ASDIRECTED Sodium Chloride 0.9% [Saline Flush] Med 09/27/20 19:35 Active 10 ml FLUSH ASDIRECTED PRN cefTRIAXone [Rocephin] 2 gm Med 09/28/20 21:00 Active Sodium Chloride 0.9% [Normal Saline] 100 ml IV Q24H Blood Culture x2 Reflex Set [OM.PC] Stat Oth 09/27/20 21:47 Ordered ED Antiemetic Medication Reflex [OM.PC] Stat Oth 09/27/20 19:36 Ordered Peripheral IV Insertion Adult [OM.PC] Stat Oth 09/27/20 19:35 Ordered Code Status [Resuscitation Status] Routine Resus Stat 09/28/20 00:25 Ordered Assessment/Plan Comment:: Assessment - 09/28/20 (admitted late 09/27/20) * Presented to ED on 09/27/20 with back pain, chest pain, shortness of breath * Has been feeling poor since August 31 and was diagnosed with Covid on 09/17/2026. * Was taken off isolation precautions by her [facility] manager case. * Reports cough, fever, and chills at home along with generalized weakness. * Twelve-lead EKG obtained in ED shows sinus rhythm at 92 bpm with a prolonged QTC * She is afebrile but tachycardic and not requiring oxygen. * Labs in ED: * WBC 15.98 * Hemoglobin 13.9 * Platelet 422 * Neutrophils elevated at 12.84 * D-dimer 1.06 * Sodium 140 * Potassium 3.5 * Anion gap 14.5 * BUN 11, creatinine 0.9, GFR greater than 60 * Glucose 115 * Magnesium 2.0 * Bilirubin 0.7 * AST 23 ALT 44 alkaline phosphatase 66 * Troponin less than 0.017 * CRP 23.6 * Albumin 3.1 * Lactic acid 0.9 * TSH 1.745. * She is given IV fluids, Zofran, Dilaudid * CT angiogram obtained 09/27/20: * 1. Possible minimal pulmonary embolism within a subsegmental branch within the left lower lung. * 2. Focal consolidation within the left lower chest possibly due to infarct or pneumonia. * 3. 6 mm nodule within the right upper lung as well as mild mediastinal and hilar adenopathy which is nonspecific. Follow-up contrast-enhanced study could be considered in 6 months. This would occur in March 2021. * 4. Other findings as noted above which are nonacute. * Started on IV Rocephin. Azithromycin held due to prolonged QTC. * Not requiring any oxygen * Started on Eliquis. Patient unable to afford this. Will therefore start warfarin. * History of hypoparathyroidism, obesity, hypothyroid post iodine treatment, COVID-19 infection. * Admitted observation status with telemetry for treatment of her PE, PNA, and further work-up. Post-COVID syndrome Pulmonary embolism Pneumonia * Rocephin Q24H * Start doxycycline BID * PT consult * Continue Eliquis 5mg BID until INR is 2 * Start warfarin - pharmacy to dose * Follow INR * Monitor need for oxygen * Pain medications as ordered * IS/Acapella * RT consultation * PRN robitussin DM Mass of left lung Nodule of left lung * PCP follow-up * Dr. Adamson recommending repeat contrast enhanced chest CT in March 2021 Thyroid lesion * Thyroid US * PCP follow-up Code status: Full code PCP: None - needs to establish DVT Prophylaxis: Eliquis Social: Patient reports working 2 jobs and having difficulty making ends meet. SW consult placed. Disposition: Admitted observation status on telemetry for management of PE, PNA, and further workup. - Mortality Measure Prognosis:: Good
[2020-09-28] MEDS ORDERED: Albuterol/Ipratropium 3.0-0.5 MG/3 ML Neb Soln NEB PRN (07:27)
[2020-09-28] MEDS ORDERED: Ibuprofen 600 MG Tab PO PRN (07:27)
[2020-09-28] MEDS ORDERED: Ondansetron 4 MG/2 ML SDV IV PRN (07:27)
[2020-09-28] MEDS ORDERED: HYDROmorphone 0.5 MG/0.5 ML Syringe IVPUSH PRN (07:27)
--- NOTE | 2020-09-28 07:36 | CT ---
CT chest Technique: Multiple axial sections were obtained from above the dome of the diaphragm inferiorly through the lung bases. Intravenous contrast was utilized. Intravenous contrast is slightly less than optimal. Findings: Pulmonary arteries show a very small occlusive pulmonary embolism within the subsegmental branch of the left lower lung. No other discrete pulmonary embolism is seen on this limited study. Thoracic aorta shows no aneurysmal dilatation. Mild degenerative change is seen within the coronary arteries. Several slightly prominent pretracheal lymph nodes are noted. Slightly prominent hilar lymph nodes are noted. Very small left-sided pleural effusion is seen. There is minimal ascites superior to the spleen. Surgical clips are noted from previous cholecystectomy. Thyroid gland shows a nodule within the left side. Focal area of consolidation is noted within the left lung base. Slight areas of presumed scarring is seen within the right side. Small subpleural nodule measuring about 6 mm is seen within the upper right lung. Scattered degenerative change is noted throughout the spine. No acute osseous abnormality is appreciated. Impression: 1. Possible minimal pulmonary embolism within a subsegmental branch within the left lower lung. 2. Focal consolidation within the left lower chest possibly due to infarct or pneumonia. 3. 6 mm nodule within the right upper lung as well as mild mediastinal and hilar adenopathy which is nonspecific. Follow-up contrast-enhanced study could be considered in 6 months. This would occur in March,. 4. Other findings as noted above which are nonacute. Diagnostic code #5 I agree with preliminary report from [facility], finalized on 09/27/20, 10:34 PM SIENE MAKER
[2020-09-28] MEDS: Doxycycline 100 MG in Sodium Chloride 0.9% 100 ML IV SCH ×2 (09:50→21:50)
[2020-09-28] MEDS: Apixaban 5 MG Tab PO SCH ×2 (09:50→20:10)
--- NOTE | 2020-09-28 12:38 | US ---
Bilateral venous ultrasound: Duplex and color Doppler evaluation was obtained of the right and left common femoral, proximal greater saphenous, superficial femoral, popliteal, posterior tibial and peroneal veins. Findings: Normal phasic flow, augmentation and compression is seen. Impression: 1. No findings of deep venous thrombosis is seen within the right or left lower extremity. Diagnostic code #1
--- NOTE | 2020-09-28 12:39 | US ---
Thyroid ultrasound: Multiple real-time images of the thyroid gland were obtained. Comparison: Prior thyroid study performed on previous CT exam of 09/27/20. Findings: 2 small nodules are seen within the right lobe of the thyroid gland measuring 6 mm and 4 mm. Hypoechoic and solid nodule containing calcifications are seen within the left lobe of the thyroid gland measuring approximately 1.2 cm. Second irregular nodule is noted within the left lobe measuring 1.4 cm. Measurements: Right lobe: 3.9 x 1.4 x 1.3 cm Left lobe: 4.3 x 1.9 x 2.0 cm Isthmus thickness: 0.4 cm Impression: 1. Two nodules within each lobe of the thyroid gland with most prominent nodules on the left side. Consider repeating thyroid ultrasound study in 6 months to further evaluate for stability. Diagnostic code #3
[2020-09-28] MEDS ORDERED: guaiFENesin/Dextromethorphan 100-10 MG/5 ML Soln 5 ML Cup PO PRN (14:00)
[2020-09-28] MEDS ORDERED: Magnesium Hydroxide 400 MG/5 ML Susp 30 ML Cup PO ONE (17:00)
[2020-09-28] MEDS ORDERED: Warfarin 3 MG Tab PO SCH (18:00)
[2020-09-28] MEDS: cefTRIAXone 2 GM in Sodium Chloride 0.9% 100 ML IV SCH (20:10)
[2020-09-28] MEDS ORDERED: Azithromycin 500 MG in Sodium Chloride 0.9% 250 ML IV SCH (21:30)
--- NOTE | 2020-09-29 08:56 | PCM.PN ---
- General Info Date of Service: 09/29/20 Admission Dx/Problem (Free Text): Admission Diagnosis/Problem Admission Diagnosis/Problem Pneumonia Subjective Update: In to see Nicole. She reports she feels better today. She still reports dyspnea on exertion but it is improving. She is not requiring any oxygen. Due to concerns over cost patient states she is unable to continue Eliquis. Because of this she was started on warfarin yesterday with pharmacy to dose. We will continue Eliquis as a form of bridging and this will be discontinued when her INR is 2.0 or greater. White count and CRP are improving. We will continue current treatment plan. Discharge will be pending therapeutic INR. Functional Status: Reports: Pain Controlled, Tolerating Diet, Ambulating, Urinating, Incentive Spirometry, Other (Acapella ). Denies: New Symptoms - Review of Systems General: Reports: Weakness (improving ), Fatigue (improving ). Denies: Fever, Malaise, Chills HEENT: Reports: No Symptoms. Denies: Headaches, Sore Throat Pulmonary: Reports: Shortness of Breath (at times ). Denies: Pleuritic Chest Pain, Cough, Sputum, Wheezing Cardiovascular: Reports: Dyspnea on Exertion. Denies: Chest Pain, Palpitations Gastrointestinal: Reports: No Symptoms. Denies: Abdominal Pain, Constipation, Diarrhea, Nausea, Vomiting Genitourinary: Reports: No Symptoms. Denies: Pain Musculoskeletal: Reports: No Symptoms Skin: Reports: No Symptoms. Denies: Cyanosis Neurological: Reports: No Symptoms. Denies: Confusion, Pre-Existing Deficit, Difficulty Walking, Gait Disturbance Psychiatric: Reports: No Symptoms. Denies: Confusion - Patient Data Vitals - Most Recent: Last Vital Signs Temp 98.2 F 09/29/20 08:18 Pulse 80 09/29/20 08:18 Resp 18 09/29/20 08:18 BP 101/63 09/29/20 08:18 Pulse Ox 94 L 09/29/20 08:18 Weight - Most Recent: 231 lb 9.6 oz I&O - Last 24 Hours: Intake & Output 09/28/20 09/29/20 09/29/20 22:59 06:59 14:59 Intake Total 470 800 Output Total 650 150 Balance -180 650 Lab Results Last 24 Hours: Laboratory Results - last 24 hr 09/28/20 09/29/20 Range/Units 11:17 05:14 PT 14.1 H 12.8 H (9.7-12.0) SECONDS INR 1.33 1.20 Ramiro Results Last 24 Hours: Microbiology 09/27/20 22:50 Aerobic Blood Culture - Preliminary Blood - Venous - Lab Draw NO GROWTH AFTER 1 DAY Anaerobic Blood Culture - Final 09/27/20 22:45 Aerobic Blood Culture - Preliminary Blood - Venous NO GROWTH AFTER 1 DAY Anaerobic Blood Culture - Final - Exam Quality Assessment: DVT Prophylaxis. No: Supplemental Oxygen General: Alert, Oriented, Cooperative, No Acute Distress HEENT: Pupils Equal, Pupils Reactive, Mucous Membr. Moist/Bala Neck: Supple, Trachea Midline Lungs: Clear to Auscultation, Normal Respiratory Effort, Decreased Breath Sounds Cardiovascular: Regular Rate, Regular Rhythm GI/Abdominal Exam: Normal Bowel Sounds, Soft, Non-Tender, No Distention (Female) Exam: Deferred Back Exam: Normal Inspection, Full Range of Motion Extremities: Normal Inspection, Normal Range of Motion, Non-Tender, No Pedal Edema, Normal Capillary Refill Skin: Warm, Dry, Intact Neurological: No New Focal Deficit Psy/Mental Status: Alert, Normal Affect, Normal Mood - Patient Data Lab Results Last 24 hrs: Laboratory Results - last 24 hr 09/28/20 09/29/20 Range/Units 11:17 05:14 PT 14.1 H 12.8 H (9.7-12.0) SECONDS INR 1.33 1.20 Result Diagrams: 09/29/20 09:16 09/29/20 09:16 Ramiro Results Last 24 hrs: Microbiology 09/27/20 22:50 Aerobic Blood Culture - Preliminary Blood - Venous - Lab Draw NO GROWTH AFTER 1 DAY Anaerobic Blood Culture - Final 09/27/20 22:45 Aerobic Blood Culture - Preliminary Blood - Venous NO GROWTH AFTER 1 DAY Anaerobic Blood Culture - Final Sepsis Event Note - Evaluation Sepsis Screening Result: No Definite Risk - Focused Exam Vital Signs: Vital Signs Temp Pulse Resp BP Pulse Ox 09/29/20 08:18 98.2 F 80 18 101/63 94 L 09/29/20 07:32 98 09/29/20 05:20 97.5 F 80 16 113/62 98 - Problem List & Annotations (1) Post-COVID syndrome SNOMED Code(s): 546459685, 800750471126793004 Code(s): B94.8 - SEQUELAE OF OTH INFECTIOUS AND PARASITIC DISEASES Status: Acute Priority: High Current Visit: Yes (2) Mass of left lung SNOMED Code(s): 370675032 Code(s): R91.8 - OTHER NONSPECIFIC ABNORMAL FINDING OF LUNG FIELD Status: Acute Priority: High Current Visit: Yes (3) Pneumonia SNOMED Code(s): 700314177 Code(s): J18.9 - PNEUMONIA, UNSPECIFIED ORGANISM Status: Acute Priority: High Current Visit: Yes Qualifiers: Pneumonia type: due to unspecified organism Laterality: left Lung lo cation: lower lobe of lung Qualified Code(s): J18.9 - Pneumonia, unspecified organism (4) Pulmonary embolism SNOMED Code(s): 23277576 Code(s): I26.99 - OTHER PULMONARY EMBOLISM WITHOUT ACUTE COR PULMONALE Status: Acute Priority: High Current Visit: Yes Qualifiers: Pulmonary embolism type: other Chronicity: acute Acute cor pulmonale pr esence: without acute cor pulmonale Qualified Code(s): I26.99 - Other pulmonary embolism without acute cor pulmonale (5) Thyroid lesion SNOMED Code(s): 12641664 Code(s): E07.89 - OTHER SPECIFIED DISORDERS OF THYROID Status: Acute Priority: High Current Visit: Yes (6) Nodule of left lung SNOMED Code(s): 414482772 Code(s): R91.1 - SOLITARY PULMONARY NODULE Status: Acute Current Visit: Yes - Problem List Review Problem List Initiated/Reviewed/Updated: Yes - My Orders Last 24 Hours: My Active Orders 09/28/20 10:00 Doxycycline [Vibramycin] 100 mg Sodium Chloride 0.9% [Normal Saline] 100 ml IV Q12H 09/28/20 10:19 Up With Assistance [RC] ASDIRECTED 09/28/20 10:20 Consult to Physical Therapy [PT Evaluation and Treatment] [CONS] Routine 09/28/20 10:21 Consult to Case Management/Geometry Professor [CONS] Routine 09/28/20 11:00 Pharmacy to Dose - Warfarin 1 dose .XX ASDIRECTED PRN 09/28/20 14:00 Dextromethorphan/guaiFENesin [Robitussin DM] 10 ml PO TID PRN 09/29/20 08:51 BASIC METABOLIC PANEL,BMP [CHEM] Routine C-REACTIVE PROTEIN [CHEM] Routine CBC WITH AUTO DIFF [HEME] Routine MAGNESIUM [CHEM] Routine 09/30/20 05:11 BASIC METABOLIC PANEL,BMP [CHEM] AM CBC WITH AUTO DIFF [HEME] AM CRP [C-REACTIVE PROTEIN] [CHEM] AM INR,PT,PROTHROMBIN TIME [COAG] AM MAGNESIUM [CHEM] AM 10/01/20 05:11 BASIC METABOLIC PANEL,BMP [CHEM] AM CBC WITH AUTO DIFF [HEME] AM CRP [C-REACTIVE PROTEIN] [CHEM] AM INR,PT,PROTHROMBIN TIME [COAG] AM MAGNESIUM [CHEM] AM 10/02/20 05:11 BASIC METABOLIC PANEL,BMP [CHEM] AM CBC WITH AUTO DIFF [HEME] AM CRP [C-REACTIVE PROTEIN] [CHEM] AM INR,PT,PROTHROMBIN TIME [COAG] AM MAGNESIUM [CHEM] AM 10/03/20 05:11 BASIC METABOLIC PANEL,BMP [CHEM] AM CBC WITH AUTO DIFF [HEME] AM CRP [C-REACTIVE PROTEIN] [CHEM] AM INR,PT,PROTHROMBIN TIME [COAG] AM MAGNESIUM [CHEM] AM 10/04/20 05:11 INR,PT,PROTHROMBIN TIME [COAG] AM 10/05/20 05:11 INR,PT,PROTHROMBIN TIME [COAG] AM 10/06/20 05:11 INR,PT,PROTHROMBIN TIME [COAG] AM - Assessment Assessment:: Assessment - 09/28/20 (admitted late 09/27/20) * Presented to ED on 09/27/20 with back pain, chest pain, shortness of breath * Has been feeling poor since August 31 and was diagnosed with Covid on 09/17/2026. * Was taken off isolation precautions by her [facility] disease case manager rn. * Reports cough, fever, and chills at home along with generalized weakness. * Twelve-lead EKG obtained in ED shows sinus rhythm at 92 bpm with a prolonged QTC * She is afebrile but tachycardic and not requiring oxygen. * Labs in ED: * WBC 15.98 * Hemoglobin 13.9 * Platelet 422 * Neutrophils elevated at 12.84 * D-dimer 1.06 * Sodium 140 * Potassium 3.5 * Anion gap 14.5 * BUN 11, creatinine 0.9, GFR greater than 60 * Glucose 115 * Magnesium 2.0 * Bilirubin 0.7 * AST 23 ALT 44 alkaline phosphatase 66 * Troponin less than 0.017 * CRP 23.6 * Albumin 3.1 * Lactic acid 0.9 * TSH 1.745. * She is given IV fluids, Zofran, Dilaudid * CT angiogram obtained 09/27/20: * 1. Possible minimal pulmonary embolism within a subsegmental branch within the left lower lung. * 2. Focal consolidation within the left lower chest possibly due to infarct or pneumonia. * 3. 6 mm nodule within the right upper lung as well as mild mediastinal and hilar adenopathy which is nonspecific. Follow-up contrast-enhanced study could be considered in 6 months. This would occur in March 2021. * 4. Other findings as noted above which are nonacute. * Started on IV Rocephin. Azithromycin held due to prolonged QTC. * Not requiring any oxygen * Started on Eliquis. Patient unable to afford this. Will therefore start warfarin. * History of hypoparathyroidism, obesity, hypothyroid post iodine treatment, COVID-19 infection. * Admitted observation status with telemetry for treatment of her PE, PNA, and further work-up. 09/29/20 * Reports she is feeling better but still dyspneic at times * Not requiring oxygen * Lower extremity US for DVT negative * Would like to see Dr. Sutherland after discharge * Thyroid US: Two nodules noted within each lobe of the thyroid gland with most prominent nodules on left side. Consider repeat thyroid ultrasound study in 6 months to further evaluate for stability. * Continue current treatment plan * Labs today: * WBC 9.82. * Hemoglobin 13.2. * Platelets 392. * INR 1.20. * Sodium 145. * Potassium 3.6. * Anion gap 11.6. * GFR greater than 60. * Magnesium 2.1. * CRP 18.1. * Continue doxycycline/rocephin * Discharge pending INR in therapeutic range - Plan Plan:: Post-COVID syndrome Pulmonary embolism Pneumonia * Rocephin Q24H * Start doxycycline BID * PT consult * Continue Eliquis 5mg BID until INR is 2 * Start warfarin - pharmacy to dose * Follow INR * Monitor need for oxygen * Pain medications as ordered * IS/Acapella * RT consultation * PRN robitussin DM Mass of left lung Nodule of left lung * PCP follow-up * Dr. Adamson recommending repeat contrast enhanced chest CT in March 2021 Thyroid lesion * Thyroid US obtained * PCP follow-up * Consider repeat thyroid US in 6 months to further evaluate stability Code status: Full code PCP: None - needs to establish DVT Prophylaxis: Eliquis and starting warfarin Social: Patient reports working 2 jobs and having difficulty making ends meet. SW consult placed. Disposition: Admitted observation status on telemetry for management of PE, PNA, and further workup.
[2020-09-29] MEDS: Doxycycline 100 MG in Sodium Chloride 0.9% 100 ML IV SCH ×2 (09:15→22:04)
[2020-09-29] MEDS: Apixaban 5 MG Tab PO SCH ×2 (09:16→21:26)
[2020-09-29] MEDS ORDERED: Polyethylene Glycol 3350 Powder 17 GM Packet PO ONE (10:30)
[2020-09-29] MEDS ORDERED: Potassium Chloride 20 MEQ Tab.ER PO ONE (10:43)
[2020-09-29] MEDS ORDERED: Warfarin 3 MG Tab PO SCH (18:00)
[2020-09-29] MEDS ORDERED: Doxycycline 100 MG Vial ONE (21:20)
[2020-09-29] MEDS: cefTRIAXone 2 GM in Sodium Chloride 0.9% 100 ML IV SCH (21:27)
--- NOTE | 2020-09-30 08:00 | PCM.PN ---
- General Info Date of Service: 09/30/20 Admission Dx/Problem (Free Text): Admission Diagnosis/Problem Admission Diagnosis/Problem Pneumonia Subjective Update: In to see Juhi. She reports she is feeling okay but is still having left- sided flank pain. She continues to also have dyspnea on exertion. Still not requiring oxygen. Will repeat chest x-ray today. Otherwise she will remain hospitalized until her INR is therapeutic. She continues to utilize her wen ntive spirometer and Acapella regularly. Labs remained stable. Functional Status: Reports: Pain Controlled, Tolerating Diet, Ambulating, Urinating, Incentive Spirometry, Other (Acapella ). Denies: New Symptoms - Review of Systems General: Reports: No Symptoms. Denies: Fever, Weakness, Fatigue, Malaise, Chills HEENT: Reports: No Symptoms. Denies: Headaches, Sore Throat Pulmonary: Reports: Shortness of Breath, Cough. Denies: Pleuritic Chest Pain, Sputum, Wheezing Cardiovascular: Reports: Dyspnea on Exertion. Denies: Chest Pain, Palpitations, Edema Gastrointestinal: Reports: No Symptoms. Denies: Abdominal Pain, Constipation, Diarrhea, Nausea, Vomiting Genitourinary: Reports: No Symptoms. Denies: Pain Musculoskeletal: Reports: Back Pain Skin: Reports: No Symptoms. Denies: Cyanosis Neurological: Reports: No Symptoms. Denies: Confusion, Pre-Existing Deficit, Difficulty Walking, Gait Disturbance Psychiatric: Reports: No Symptoms - Patient Data Vitals - Most Recent: Last Vital Signs Temp 98.8 F 09/30/20 05:16 Pulse 93 09/30/20 05:16 Resp 12 09/30/20 05:16 BP 110/81 09/30/20 05:16 Pulse Ox 94 L 09/30/20 05:16 Weight - Most Recent: 232 lb 3.2 oz I&O - Last 24 Hours: Intake & Output 09/29/20 09/30/20 09/30/20 22:59 06:59 14:59 Intake Total 900 700 Output Total 3 500 Balance 897 200 Lab Results Last 24 Hours: Laboratory Results - last 24 hr 09/29/20 09/29/20 09/30/20 Range/Units 09:16 09:16 06:17 WBC 9.82 (3.98-10.04) K/mm3 RBC 4.67 (3.98-5.22) M/mm3 Hgb 13.2 (11.2-15.7) gm/dl Hct 41.7 (34.1-44.9) % MCV 89.3 (79.4-94.8) fl MCH 28.3 (25.6-32.2) pg MCHC 31.7 L (32.2-35.5) g/dl RDW Std Deviation 43.5 (36.4-46.3) fL Plt Count 392 H (182-369) K/mm3 MPV 10.8 (9.4-12.3) fl Neut % (Auto) 67.4 (34.0-71.1) % Lymph % (Auto) 18.0 L (19.3-51.7) % [place] % (Auto) 12.7 H (4.7-12.5) % Eos % (Auto) 1.2 (0.7-5.8) Baso % (Auto) 0.4 (0.1-1.2) % Neut # (Auto) 6.61 H (1.56-6.13) K/mm3 Lymph # (Auto) 1.77 (1.18-3.74) K/mm3 [place] # (Auto) 1.25 H (0.24-0.36) K/mm3 Eos # (Auto) 0.12 (0.04-0.36) K/mm3 Baso # (Auto) 0.04 (0.01-0.08) K/mm3 Manual Slide Review Normal smear PT 15.2 H (9.7-12.0) SECONDS INR 1.43 Sodium 145 (136-145) mEq/L Potassium 3.6 (3.5-5.1) mEq/L Chloride 107 (98-107) mEq/L Carbon Dioxide 30 (21-32) mEq/L Anion Gap 11.6 (5-15) BUN 14 (7-18) mg/dL Creatinine 0.8 (0.55-1.02) mg/dL Est Cr Clr Drug Dosing 77.88 mL/min Estimated GFR (MDRD) > 60 (>60) mL/min BUN/Creatinine Ratio 17.5 (14-18) Glucose 90 (74-106) mg/dL Calcium 8.9 (8.5-10.1) mg/dL Magnesium 2.1 (1.8-2.4) mg/dl C-Reactive Protein 18.1 H* (<1.0) mg/dL 09/30/20 09/30/20 Range/Units 06:17 06:17 WBC 9.61 (3.98-10.04) K/mm3 RBC 4.30 (3.98-5.22) M/mm3 Hgb 12.1 (11.2-15.7) gm/dl Hct 38.5 (34.1-44.9) % MCV 89.5 (79.4-94.8) fl MCH 28.1 (25.6-32.2) pg MCHC 31.4 L (32.2-35.5) g/dl RDW Std Deviation 43.3 (36.4-46.3) fL Plt Count 414 H (182-369) K/mm3 MPV 11.0 (9.4-12.3) fl Neut % (Auto) 68.8 (34.0-71.1) % Lymph % (Auto) 18.9 L (19.3-51.7) % [place] % (Auto) 10.5 (4.7-12.5) % Eos % (Auto) 1.1 (0.7-5.8) Baso % (Auto) 0.5 (0.1-1.2) % Neut # (Auto) 6.60 H (1.56-6.13) K/mm3 Lymph # (Auto) 1.82 (1.18-3.74) K/mm3 [place] # (Auto) 1.01 H (0.24-0.36) K/mm3 Eos # (Auto) 0.11 (0.04-0.36) K/mm3 Baso # (Auto) 0.05 (0.01-0.08) K/mm3 Manual Slide Review PT (9.7-12.0) SECONDS INR Sodium 142 (136-145) mEq/L Potassium 3.7 (3.5-5.1) mEq/L Chloride 107 (98-107) mEq/L Carbon Dioxide 26 (21-32) mEq/L Anion Gap 12.7 (5-15) BUN 12 (7-18) mg/dL Creatinine 0.6 (0.55-1.02) mg/dL Est Cr Clr Drug Dosing 103.84 mL/min Estimated GFR (MDRD) > 60 (>60) mL/min BUN/Creatinine Ratio 20.0 H (14-18) Glucose 107 H (74-106) mg/dL Calcium 8.4 L (8.5-10.1) mg/dL Magnesium 1.9 (1.8-2.4) mg/dl C-Reactive Protein 11.6 H* (<1.0) mg/dL Ramiro Results Last 24 Hours: Microbiology 09/27/20 22:50 Aerobic Blood Culture - Preliminary Blood - Venous - Lab Draw NO GROWTH AFTER 2 DAYS Anaerobic Blood Culture - Final 09/27/20 22:45 Aerobic Blood Culture - Preliminary Blood - Venous NO GROWTH AFTER 2 DAYS Anaerobic Blood Culture - Final Med Orders - Current: Current Medications Sodium Chloride (Normal Saline) 1,000 mls @ 1,000 mls/hr IV .BOLUS COUNT INCLUDES THE [facility] Last Admin: 09/27/20 20:06 Dose: 1,000 mls/hr Documented by: Sodium Chloride (Normal Saline) 100 mls @ 60 mls/hr IV ASDIRECTED COUNT INCLUDES THE [facility] Last Admin: 09/27/20 21:23 Dose: 60 mls/hr Documented by: Sodium Chloride (Sodium Chloride 0.9% 10 Ml Syringe) 10 ml FLUSH ASDIRECTED PRN PRN Reason: Keep Vein Open Sodium Chloride (Sodium Chloride 0.9% 10 Ml Syringe) 10 ml FLUSH ASDIRECTED COUNT INCLUDES THE [facility] Last Admin: 09/27/20 21:22 Dose: 10 ml Documented by: Discontinued Medications Hydromorphone HCl (Hydromorphone 0.5 Mg/0.5 Ml Syringe) 0.5 mg IVPUSH ONETIME ONE Stop: 09/27/20 19:37 Last Admin: 09/27/20 20:06 Dose: 0.5 mg Documented by: Iopamidol (Iopamidol 755 Mg/Ml 100 Ml Bottle) 100 ml IVPUSH ONETIME ONE Stop: 09/27/20 19:53 Last Admin: 09/27/20 21:22 Dose: 100 ml Documented by: Ondansetron HCl (Ondansetron 4 Mg/2 Ml Sdv) 4 mg IVPUSH ONETIME ONE Stop: 09/27/20 19:36 Last Admin: 09/27/20 20:06 Dose: 4 mg Documented by: - Exam Quality Assessment: DVT Prophylaxis. No: Supplemental Oxygen General: Alert, Oriented, Cooperative HEENT: Pupils Equal, Pupils Reactive, Mucous Membr. Moist/[place] Neck: Supple, Trachea Midline Lungs: Clear to Auscultation, Normal Respiratory Effort, Decreased Breath Sounds Cardiovascular: Regular Rate, Regular Rhythm GI/Abdominal Exam: Normal Bowel Sounds, Soft, Non-Tender, No Distention (Female) Exam: Deferred Back Exam: Normal Inspection, Full Range of Motion, Other (Tenderness to left flank area -musculoskeletal in nature) Extremities: Normal Inspection Peripheral Pulses: 2+: Radial (L), Radial (R), Dorsalis Pedis (L), Dorsalis Pedis (R) Skin: Warm, Dry, Intact Neurological: No New Focal Deficit Psy/Mental Status: Alert, Anxious - Patient Data Lab Results Last 24 hrs: Laboratory Results - last 24 hr 09/29/20 09/29/20 09/30/20 Range/Units 09:16 09:16 06:17 WBC 9.82 (3.98-10.04) K/mm3 RBC 4.67 (3.98-5.22) M/mm3 Hgb 13.2 (11.2-15.7) gm/dl Hct 41.7 (34.1-44.9) % MCV 89.3 (79.4-94.8) fl MCH 28.3 (25.6-32.2) pg MCHC 31.7 L (32.2-35.5) g/dl RDW Std Deviation 43.5 (36.4-46.3) fL Plt Count 392 H (182-369) K/mm3 MPV 10.8 (9.4-12.3) fl Neut % (Auto) 67.4 (34.0-71.1) % Lymph % (Auto) 18.0 L (19.3-51.7) % [place] % (Auto) 12.7 H (4.7-12.5) % Eos % (Auto) 1.2 (0.7-5.8) Baso % (Auto) 0.4 (0.1-1.2) % Neut # (Auto) 6.61 H (1.56-6.13) K/mm3 Lymph # (Auto) 1.77 (1.18-3.74) K/mm3 [place] # (Auto) 1.25 H (0.24-0.36) K/mm3 Eos # (Auto) 0.12 (0.04-0.36) K/mm3 Baso # (Auto) 0.04 (0.01-0.08) K/mm3 Manual Slide Review Normal smear PT 15.2 H (9.7-12.0) SECONDS INR 1.43 Sodium 145 (136-145) mEq/L Potassium 3.6 (3.5-5.1) mEq/L Chloride 107 (98-107) mEq/L Carbon Dioxide 30 (21-32) mEq/L Anion Gap 11.6 (5-15) BUN 14 (7-18) mg/dL Creatinine 0.8 (0.55-1.02) mg/dL Est Cr Clr Drug Dosing 77.88 mL/min Estimated GFR (MDRD) > 60 (>60) mL/min BUN/Creatinine Ratio 17.5 (14-18) Glucose 90 (74-106) mg/dL Calcium 8.9 (8.5-10.1) mg/dL Magnesium 2.1 (1.8-2.4) mg/dl C-Reactive Protein 18.1 H* (<1.0) mg/dL 09/30/20 09/30/20 Range/Units 06:17 06:17 WBC 9.61 (3.98-10.04) K/mm3 RBC 4.30 (3.98-5.22) M/mm3 Hgb 12.1 (11.2-15.7) gm/dl Hct 38.5 (34.1-44.9) % MCV 89.5 (79.4-94.8) fl MCH 28.1 (25.6-32.2) pg MCHC 31.4 L (32.2-35.5) g/dl RDW Std Deviation 43.3 (36.4-46.3) fL Plt Count 414 H (182-369) K/mm3 MPV 11.0 (9.4-12.3) fl Neut % (Auto) 68.8 (34.0-71.1) % Lymph % (Auto) 18.9 L (19.3-51.7) % [place] % (Auto) 10.5 (4.7-12.5) % Eos % (Auto) 1.1 (0.7-5.8) Baso % (Auto) 0.5 (0.1-1.2) % Neut # (Auto) 6.60 H (1.56-6.13) K/mm3 Lymph # (Auto) 1.82 (1.18-3.74) K/mm3 [place] # (Auto) 1.01 H (0.24-0.36) K/mm3 Eos # (Auto) 0.11 (0.04-0.36) K/mm3 Baso # (Auto) 0.05 (0.01-0.08) K/mm3 Manual Slide Review PT (9.7-12.0) SECONDS INR Sodium 142 (136-145) mEq/L Potassium 3.7 (3.5-5.1) mEq/L Chloride 107 (98-107) mEq/L Carbon Dioxide 26 (21-32) mEq/L Anion Gap 12.7 (5-15) BUN 12 (7-18) mg/dL Creatinine 0.6 (0.55-1.02) mg/dL Est Cr Clr Drug Dosing 103.84 mL/min Estimated GFR (MDRD) > 60 (>60) mL/min BUN/Creatinine Ratio 20.0 H (14-18) Glucose 107 H (74-106) mg/dL Calcium 8.4 L (8.5-10.1) mg/dL Magnesium 1.9 (1.8-2.4) mg/dl C-Reactive Protein 11.6 H* (<1.0) mg/dL Result Diagrams: 09/30/20 06:17 09/30/20 06:17 Ramiro Results Last 24 hrs: Microbiology 09/27/20 22:50 Aerobic Blood Culture - Preliminary Blood - Venous - Lab Draw NO GROWTH AFTER 2 DAYS Anaerobic Blood Culture - Final 09/27/20 22:45 Aerobic Blood Culture - Preliminary Blood - Venous NO GROWTH AFTER 2 DAYS Anaerobic Blood Culture - Final Sepsis Event Note - Evaluation Sepsis Screening Result: No Definite Risk - Focused Exam Vital Signs: Vital Signs Temp Pulse Resp BP Pulse Ox 09/30/20 05:16 98.8 F 93 12 110/81 94 L 09/29/20 21:37 98.2 F 97 12 115/63 92 L - Problem List & Annotations (1) Post-COVID syndrome SNOMED Code(s): 546591942, 793809796043866077 Code(s): B94.8 - SEQUELAE OF OTH INFECTIOUS AND PARASITIC DISEASES Status: Acute Priority: High Current Visit: Yes (2) Mass of left lung SNOMED Code(s): 375166550 Code(s): R91.8 - OTHER NONSPECIFIC ABNORMAL FINDING OF LUNG FIELD Status: Acute Priority: High Current Visit: Yes (3) Pneumonia SNOMED Code(s): 958294380 Code(s): J18.9 - PNEUMONIA, UNSPECIFIED ORGANISM Status: Acute Priority: High Current Visit: Yes Qualifiers: Pneumonia type: due to unspecified organism Laterality: left Lung location: lower lobe of lung Qualified Code(s): J18.9 - Pneumonia, unspecified organism (4) Pulmonary embolism SNOMED Code(s): 43743460 Code(s): I26.99 - OTHER PULMONARY EMBOLISM WITHOUT ACUTE COR PULMONALE Status: Acute Priority: High Current Visit: Yes Qualifiers: Pulmonary embolism type: other Chronicity: acute Acute cor pulmonale presence: without acute cor pulmonale Qualified Code(s): I26.99 - Other pulmonary embolism without acute cor pulmonale (5) Thyroid lesion SNOMED Code(s): 36660416 Code(s): E07.89 - OTHER SPECIFIED DISORDERS OF THYROID Status: Acute Priority: High Current Visit: Yes (6) Nodule of left lung SNOMED Code(s): 725446071 Code(s): R91.1 - SOLITARY PULMONARY NODULE Status: Acute Current Visit: Yes - Problem List Review Problem List Initiated/Reviewed/Updated: Yes - My Orders Last 24 Hours: My Active Orders 10/01/20 05:11 BASIC METABOLIC PANEL,BMP [CHEM] AM CBC WITH AUTO DIFF [HEME] AM CRP [C-REACTIVE PROTEIN] [CHEM] AM INR,PT,PROTHROMBIN TIME [COAG] AM MAGNESIUM [CHEM] AM 10/02/20 05:11 BASIC METABOLIC PANEL,BMP [CHEM] AM CBC WITH AUTO DIFF [HEME] AM CRP [C-REACTIVE PROTEIN] [CHEM] AM INR,PT,PROTHROMBIN TIME [COAG] AM MAGNESIUM [CHEM] AM 10/03/20 05:11 BASIC METABOLIC PANEL,BMP [CHEM] AM CBC WITH AUTO DIFF [HEME] AM CRP [C-REACTIVE PROTEIN] [CHEM] AM INR,PT,PROTHROMBIN TIME [COAG] AM MAGNESIUM [CHEM] AM 10/04/20 05:11 INR,PT,PROTHROMBIN TIME [COAG] AM 10/05/20 05:11 INR,PT,PROTHROMBIN TIME [COAG] AM 10/06/20 05:11 INR,PT,PROTHROMBIN TIME [COAG] AM - Assessment Assessment:: Assessment - 09/28/20 (admitted late 09/27/20) * Presented to ED on 09/27/20 with back pain, chest pain, shortness of breath * Has been feeling poor since August 31 and was diagnosed with Covid on 09/17/2026. * Was taken off isolation precautions by her [facility] rehabilitation caseworker. * Reports cough, fever, and chills at home along with generalized weakness. * Twelve-lead EKG obtained in ED shows sinus rhythm at 92 bpm with a prolonged QTC * She is afebrile but tachycardic and not requiring oxygen. * Labs in ED: * WBC 15.98 * Hemoglobin 13.9 * Platelet 422 * Neutrophils elevated at 12.84 * D-dimer 1.06 * Sodium 140 * Potassium 3.5 * Anion gap 14.5 * BUN 11, creatinine 0.9, GFR greater than 60 * Glucose 115 * Magnesium 2.0 * Bilirubin 0.7 * AST 23 ALT 44 alkaline phosphatase 66 * Troponin less than 0.017 * CRP 23.6 * Albumin 3.1 * Lactic acid 0.9 * TSH 1.745. * She is given IV fluids, Zofran, Dilaudid * CT angiogram obtained 09/27/20: * 1. Possible minimal pulmonary embolism within a subsegmental branch within the left lower lung. * 2. Focal consolidation within the left lower chest possibly due to infarct or pneumonia. * 3. 6 mm nodule within the right upper lung as well as mild mediastinal and hilar adenopathy which is nonspecific. Follow-up contrast-enhanced study could be considered in 6 months. This would occur in March 2021. * 4. Other findings as noted above which are nonacute. * Started on IV Rocephin. Azithromycin held due to prolonged QTC. * Not requiring any oxygen * Started on Eliquis. Patient unable to afford this. Will therefore start warfarin. * History of hypoparathyroidism, obesity, hypothyroid post iodine treatment, COVID-19 infection. * Admitted observation status with telemetry for treatment of her PE, PNA, and further work-up. 09/29/20 * Reports she is feeling better but still dyspneic at times * Not requiring oxygen * Lower extremity US for DVT negative * Would like to see Dr. Sutherland after discharge * Thyroid US: Two nodules noted within each lobe of the thyroid gland with most prominent nodules on left side. Consider repeat thyroid ultrasound study in 6 months to further evaluate for stability. * Continue current treatment plan * Labs today: * WBC 9.82. * Hemoglobin 13.2. * Platelets 392. * INR 1.20. * Sodium 145. * Potassium 3.6. * Anion gap 11.6. * GFR greater than 60. * Magnesium 2.1. * CRP 18.1. * Continue doxycycline/rocephin * Discharge pending INR in therapeutic range 09/30/20 * Continued dyspnea at times, especially with exertion. * Still not requiring all oxygen. * Continues to have left flank pain, musculoskeletal nature. * Labs today: * WBC 9.61. * Platelet 414. * Neutrophil 6.60. * INR 1.43. * Sodium 142. * Potassium 3.7. * GFR greater than 60. * Glucose 107. * Calcium 8.4. * Magnesium 1.9. * CRP 11.6. * Continue current treatment plan * Discharge anticipated in 1-2 days or until INR is therapeutic. - Plan Plan:: Post-COVID syndrome Pulmonary embolism Pneumonia * Rocephin Q24H * doxycycline BID * PT consult * Continue Eliquis 5mg BID until INR is 2 * Continue warfarin - pharmacy to dose * Follow INR * Monitor need for oxygen * Pain medications as ordered * IS/Acapella * RT consultation * PRN robitussin DM * Repeat CXR today * Consider PO antibiotics pending CXR results Mass of left lung Nodule of left lung * PCP follow-up * Dr. Adamson recommending repeat contrast enhanced chest CT in March 2021 Thyroid lesion * Thyroid US obtained * PCP follow-up * Consider repeat thyroid US in 6 months to further evaluate stability Code status: Full code PCP: None - needs to establish DVT Prophylaxis: Eliquis and starting warfarin Social: Patient reports working 2 jobs and having difficulty making ends meet. SW consult placed. Disposition: Admitted observation status on telemetry for management of PE, PNA, and further workup. Upgraded to inpatient on 09/29/20.
[2020-09-30] MEDS: Apixaban 5 MG Tab PO SCH ×2 (08:54→20:16)
[2020-09-30] MEDS: Doxycycline 100 MG in Sodium Chloride 0.9% 100 ML IV SCH (10:01)
--- NOTE | 2020-09-30 11:53 | CR ---
Chest: 2 views of the chest were obtained. Comparison: No prior chest x-rays available, prior chest CT of 09/27/20. Increased density is seen within both lung bases. Findings either due to atelectasis or pneumonia. Aspiration is also within the differential. Upper lungs are clear. Heart size and mediastinum are normal. Bony structures are grossly intact. Impression: 1. Increased density within both lung bases with differential as noted above. 2. No other acute abnormality is seen. Diagnostic code #3
[2020-09-30] MEDS ORDERED: Piperacillin/Tazobactam 4.5 GM in Sodium Chloride 0.9% 100 ML IV ONE ×2 (12:00→13:30)
[2020-09-30] MEDS ORDERED: Warfarin 7.5 MG Tab PO SCH (18:00)
[2020-09-30] MEDS ORDERED: Piperacillin/Tazobactam 4.5 GM in Sodium Chloride 0.9% 100 ML IV SCH (20:00)
[2020-09-30] MEDS: Piperacillin/Tazobactam 4.5 GM in Sodium Chloride 0.9% 100 ML IV SCH ×2 (20:17→21:58)
[2020-10-01] MEDS: Piperacillin/Tazobactam 4.5 GM in Sodium Chloride 0.9% 100 ML IV SCH ×3 (06:28→19:55)
[2020-10-01] MEDS: Apixaban 5 MG Tab PO SCH ×2 (09:20→20:05)
--- NOTE | 2020-10-01 09:57 | PCM.PN ---
- General Info Date of Service: 10/01/20 Functional Status: Reports: Pain Controlled, Tolerating Diet, Ambulating, Urinating - Review of Systems General: Reports: Weakness HEENT: Reports: No Symptoms Pulmonary: Reports: No Symptoms Cardiovascular: Reports: No Symptoms Gastrointestinal: Reports: No Symptoms Genitourinary: Reports: No Symptoms Musculoskeletal: Reports: No Symptoms Skin: Reports: No Symptoms Neurological: Reports: No Symptoms Psychiatric: Reports: No Symptoms - Patient Data Vitals - Most Recent: Last Vital Signs Temp 36.8 C 10/01/20 09:22 Pulse 85 10/01/20 09:22 Resp 14 10/01/20 09:22 BP 117/68 10/01/20 09:22 Pulse Ox 94 L 10/01/20 09:22 Weight - Most Recent: 105.46 kg I&O - Last 24 Hours: Intake & Output 09/30/20 10/01/20 10/01/20 22:59 06:59 14:59 Intake Total 820 300 Output Total 600 Balance 820 -300 Lab Results Last 24 Hours: Laboratory Results - last 24 hr 09/30/20 10/01/20 10/01/20 Range/Units 06:17 05:30 05:30 WBC 9.29 (3.98-10.04) K/mm3 RBC 4.29 (3.98-5.22) M/mm3 Hgb 12.1 (11.2-15.7) gm/dl Hct 38.0 (34.1-44.9) % MCV 88.6 (79.4-94.8) fl MCH 28.2 (25.6-32.2) pg MCHC 31.8 L (32.2-35.5) g/dl RDW Std Deviation 43.1 (36.4-46.3) fL Plt Count 439 H (182-369) K/mm3 MPV 11.0 (9.4-12.3) fl Neut % (Auto) 64.2 (34.0-71.1) % Lymph % (Auto) 22.1 (19.3-51.7) % Smith % (Auto) 9.6 (4.7-12.5) % Eos % (Auto) 3.1 (0.7-5.8) Baso % (Auto) 0.8 (0.1-1.2) % Neut # (Auto) 5.97 (1.56-6.13) K/mm3 Lymph # (Auto) 2.05 (1.18-3.74) K/mm3 Smith # (Auto) 0.89 H (0.24-0.36) K/mm3 Eos # (Auto) 0.29 (0.04-0.36) K/mm3 Baso # (Auto) 0.07 (0.01-0.08) K/mm3 PT 19.9 H D (9.7-12.0) SECONDS INR 1.88 Sodium (136-145) mEq/L Potassium (3.5-5.1) mEq/L Chloride (98-107) mEq/L Carbon Dioxide (21-32) mEq/L Anion Gap (5-15) BUN (7-18) mg/dL Creatinine (0.55-1.02) mg/dL Est Cr Clr Drug Dosing mL/min Estimated GFR (MDRD) (>60) mL/min BUN/Creatinine Ratio (14-18) Glucose (74-106) mg/dL Calcium (8.5-10.1) mg/dL Magnesium (1.8-2.4) mg/dl C-Reactive Protein (<1.0) mg/dL Procalcitonin 0.17 H ng/mL 10/01/20 Range/Units 05:30 WBC (3.98-10.04) K/mm3 RBC (3.98-5.22) M/mm3 Hgb (11.2-15.7) gm/dl Hct (34.1-44.9) % MCV (79.4-94.8) fl MCH (25.6-32.2) pg MCHC (32.2-35.5) g/dl RDW Std Deviation (36.4-46.3) fL Plt Count (182-369) K/mm3 MPV (9.4-12.3) fl Neut % (Auto) (34.0-71.1) % Lymph % (Auto) (19.3-51.7) % Smith % (Auto) (4.7-12.5) % Eos % (Auto) (0.7-5.8) Baso % (Auto) (0.1-1.2) % Neut # (Auto) (1.56-6.13) K/mm3 Lymph # (Auto) (1.18-3.74) K/mm3 Smith # (Auto) (0.24-0.36) K/mm3 Eos # (Auto) (0.04-0.36) K/mm3 Baso # (Auto) (0.01-0.08) K/mm3 PT (9.7-12.0) SECONDS INR Sodium 144 (136-145) mEq/L Potassium 3.5 (3.5-5.1) mEq/L Chloride 107 (98-107) mEq/L Carbon Dioxide 25 (21-32) mEq/L Anion Gap 15.5 H (5-15) BUN 12 (7-18) mg/dL Creatinine 0.6 (0.55-1.02) mg/dL Est Cr Clr Drug Dosing 103.84 mL/min Estimated GFR (MDRD) > 60 (>60) mL/min BUN/Creatinine Ratio 20.0 H (14-18) Glucose 100 (74-106) mg/dL Calcium 8.5 (8.5-10.1) mg/dL Magnesium 2.0 (1.8-2.4) mg/dl C-Reactive Protein 7.4 H* (<1.0) mg/dL Procalcitonin ng/mL Ramiro Results Last 24 Hours: Microbiology 09/27/20 22:50 Aerobic Blood Culture - Preliminary Blood - Venous - Lab Draw NO GROWTH AFTER 3 DAYS Anaerobic Blood Culture - Final 09/27/20 22:45 Aerobic Blood Culture - Preliminary Blood - Venous NO GROWTH AFTER 3 DAYS Anaerobic Blood Culture - Final Med Orders - Current: Current Medications Albuterol/Ipratropium (Albuterol/Ipratropium 3.0-0.5 Mg/3 Ml Neb Soln) 3 ml NEB Q4H PRN PRN Reason: Shortness Of Breath/wheezing Apixaban (Apixaban 5 Mg Tab) 5 mg PO BID DANIELLE Last Admin: 10/01/20 09:20 Dose: 5 mg Documented by: Guaifenesin/Phenylephrine HCl (Guaifenesin/Dextromethorphan 100-10 Mg/5 Ml Soln 5 Ml Cup) 10 ml PO TID PRN PRN Reason: Cough Hydromorphone HCl (Hydromorphone 0.5 Mg/0.5 Ml Syringe) 0.5 mg IVPUSH Q2H PRN PRN Reason: Pain (severe 7-10) Piperacillin Sod/Tazobactam (Sod 4.5 gm/ Sodium Chloride) 100 mls @ 25 mls/hr IV Q8H [facility] Last Admin: 10/01/20 06:28 Dose: 25 mls/hr Documented by: Ibuprofen (Ibuprofen 600 Mg Tab) 600 mg PO Q6H PRN PRN Reason: Pain (moderate 4-6) Last Admin: 09/28/20 21:51 Dose: 600 mg Documented by: Ondansetron HCl (Ondansetron 4 Mg/2 Ml Sdv) 4 mg IV Q6H PRN PRN Reason: Nausea/Vomiting Sodium Chloride (Sodium Chloride 0.9% 10 Ml Syringe) 10 ml FLUSH ASDIRECTED PRN PRN Reason: Keep Vein Open Warfarin Sodium (Pharmacy To Dose - Warfarin) 1 dose .XX ASDIRECTED PRN PRN Reason: RX TO DOSE WARFARIN Warfarin Sodium (Warfarin 7.5 Mg Tab) 7.5 mg PO QPM [facility] Stop: 10/01/20 18:01 Discontinued Medications Apixaban (Apixaban 5 Mg Tab) 5 mg PO ONETIME ONE Stop: 09/27/20 21:49 Last Admin: 09/27/20 22:24 Dose: 5 mg Documented by: Doxycycline Hyclate (Doxycycline 100 Mg Vial) Confirm Administered Dose 100 mg .ROUTE .STK-MED ONE Stop: 09/29/20 21:21 Last Admin: 09/29/20 22:15 Dose: Not Given Documented by: Hydromorphone HCl (Hydromorphone 0.5 Mg/0.5 Ml Syringe) 0.5 mg IVPUSH ONETIME ONE Stop: 09/27/20 19:37 Last Admin: 09/27/20 20:06 Dose: 0.5 mg Documented by: Hydromorphone HCl (Hydromorphone 1 Mg/Ml Syringe) 1 mg IVPUSH ONETIME ONE Stop: 09/27/20 22:02 Last Admin: 09/27/20 22:32 Dose: 1 mg Documented by: Hydromorphone HCl (Hydromorphone 1 Mg/Ml Syringe) 1 mg IVPUSH Q2H PRN PRN Reason: Pain Sodium Chloride (Normal Saline) 1,000 mls @ 1,000 mls/hr IV .BOLUS [facility] Last Admin: 09/27/20 20:06 Dose: 1,000 mls/hr Documented by: Sodium Chloride (Normal Saline) 100 mls @ 60 mls/hr IV ASDIRECTED [facility] Last Admin: 09/27/20 21:23 Dose: 60 mls/hr Documented by: Ceftriaxone Sodium 2 gm/ (Sodium Chloride) 100 mls @ 200 mls/hr IV ONETIME ONE Stop: 09/27/20 22:16 Last Admin: 09/27/20 23:08 Dose: 200 mls/hr Documented by: Azithromycin 500 mg/ Sodium (Chloride) 250 mls @ 250 mls/hr IV ONETIME ONE Stop: 09/27/20 22:47 Last Admin: 09/27/20 22:42 Dose: Not Given Documented by: Ceftriaxone Sodium 2 gm/ (Sodium Chloride) 100 mls @ 200 mls/hr IV Q24H [facility] Last Admin: 09/29/20 21:27 Dose: 200 mls/hr Documented by: Azithromycin 500 mg/ Sodium (Chloride) 250 mls @ 250 mls/hr IV Q24H DANIELLE Doxycycline Hyclate 100 mg/ (Sodium Chloride) 100 mls @ 100 mls/hr IV Q12H [facility] Last Admin: 09/30/20 10:01 Dose: 100 mls/hr Documented by: Piperacillin Sod/Tazobactam (Sod 4.5 gm/ Sodium Chloride) 100 mls @ 25 mls/hr IV Q8H [facility] Piperacillin Sod/Tazobactam (Sod 4.5 gm/ Sodium Chloride) 100 mls @ 200 mls/hr IV ONETIME ONE Stop: 09/30/20 13:59 Last Admin: 09/30/20 13:16 Dose: 200 mls/hr Documented by: Ibuprofen (Ibuprofen 600 Mg Tab) 600 mg PO ONETIME ONE Stop: 09/27/20 23:07 Last Admin: 09/27/20 23:33 Dose: Not Given Documented by: Iopamidol (Iopamidol 755 Mg/Ml 100 Ml Bottle) 100 ml IVPUSH ONETIME ONE Stop: 09/27/20 19:53 Last Admin: 09/27/20 21:22 Dose: 100 ml Documented by: Magnesium Hydroxide (Magnesium Hydroxide 400 Mg/5 Ml Susp 30 Ml Cup) 30 ml PO ONETIME ONE Stop: 09/28/20 17:01 Last Admin: 09/28/20 17:14 Dose: 30 ml Documented by: Ondansetron HCl (Ondansetron 4 Mg/2 Ml Sdv) 4 mg IVPUSH ONETIME ONE Stop: 09/27/20 19:36 Last Admin: 09/27/20 20:06 Dose: 4 mg Documented by: Polyethylene Glycol (Polyethylene Glycol 3350 Powder 17 Gm Packet) 17 gm PO ONETIME ONE Stop: 09/29/20 10:31 Last Admin: 09/29/20 11:51 Dose: 17 gm Documented by: Potassium Chloride (Potassium Chloride 20 Meq Tab.Er) 40 meq PO ONETIME ONE Stop: 09/29/20 10:44 Last Admin: 09/29/20 11:50 Dose: 40 meq Documented by: Sodium Chloride (Sodium Chloride 0.9% 10 Ml Syringe) 10 ml FLUSH ASDIRECTED [facility] Last Admin: 09/27/20 21:22 Dose: 10 ml Documented by: Warfarin Sodium (Warfarin 3 Mg Tab) 6 mg PO QPM [facility] Stop: 09/28/20 18:01 Last Admin: 09/28/20 17:14 Dose: 6 mg Documented by: Warfarin Sodium (Warfarin 3 Mg Tab) 6 mg PO QPM [facility] Stop: 09/29/20 18:01 Last Admin: 09/29/20 17:57 Dose: 6 mg Documented by: Warfarin Sodium (Warfarin 7.5 Mg Tab) 7.5 mg PO QPM [facility] Stop: 09/30/20 18:01 Last Admin: 09/30/20 17:31 Dose: 7.5 mg Documented by: - Exam Quality Assessment: Supplemental Oxygen, DVT Prophylaxis General: Alert, Oriented, Cooperative, No Acute Distress HEENT: Pupils Equal, Pupils Reactive, EOMI Neck: Trachea Midline, No JVD Lungs: Normal Respiratory Effort, Decreased Breath Sounds Cardiovascular: Regular Rate, Regular Rhythm GI/Abdominal Exam: Normal Bowel Sounds, Soft, Non-Tender, No Distention (Female) Exam: Deferred Back Exam: Normal Inspection Extremities: Normal Inspection, Normal Range of Motion, Normal Capillary Refill Skin: Warm Neurological: No New Focal Deficit Psy/Mental Status: Alert, Normal Affect, Normal Mood - Patient Data Lab Results Last 24 hrs: Laboratory Results - last 24 hr 09/30/20 10/01/20 10/01/20 Range/Units 06:17 05:30 05:30 WBC 9.29 (3.98-10.04) K/mm3 RBC 4.29 (3.98-5.22) M/mm3 Hgb 12.1 (11.2-15.7) gm/dl Hct 38.0 (34.1-44.9) % MCV 88.6 (79.4-94.8) fl MCH 28.2 (25.6-32.2) pg MCHC 31.8 L (32.2-35.5) g/dl RDW Std Deviation 43.1 (36.4-46.3) fL Plt Count 439 H (182-369) K/mm3 MPV 11.0 (9.4-12.3) fl Neut % (Auto) 64.2 (34.0-71.1) % Lymph % (Auto) 22.1 (19.3-51.7) % Smith % (Auto) 9.6 (4.7-12.5) % Eos % (Auto) 3.1 (0.7-5.8) Baso % (Auto) 0.8 (0.1-1.2) % Neut # (Auto) 5.97 (1.56-6.13) K/mm3 Lymph # (Auto) 2.05 (1.18-3.74) K/mm3 Smith # (Auto) 0.89 H (0.24-0.36) K/mm3 Eos # (Auto) 0.29 (0.04-0.36) K/mm3 Baso # (Auto) 0.07 (0.01-0.08) K/mm3 PT 19.9 H D (9.7-12.0) SECONDS INR 1.88 Sodium (136-145) mEq/L Potassium (3.5-5.1) mEq/L Chloride (98-107) mEq/L Carbon Dioxide (21-32) mEq/L Anion Gap (5-15) BUN (7-18) mg/dL Creatinine (0.55-1.02) mg/dL Est Cr Clr Drug Dosing mL/min Estimated GFR (MDRD) (>60) mL/min BUN/Creatinine Ratio (14-18) Glucose (74-106) mg/dL Calcium (8.5-10.1) mg/dL Magnesium (1.8-2.4) mg/dl C-Reactive Protein (<1.0) mg/dL Procalcitonin 0.17 H ng/mL 10/01/20 Range/Units 05:30 WBC (3.98-10.04) K/mm3 RBC (3.98-5.22) M/mm3 Hgb (11.2-15.7) gm/dl Hct (34.1-44.9) % MCV (79.4-94.8) fl MCH (25.6-32.2) pg MCHC (32.2-35.5) g/dl RDW Std Deviation (36.4-46.3) fL Plt Count (182-369) K/mm3 MPV (9.4-12.3) fl Neut % (Auto) (34.0-71.1) % Lymph % (Auto) (19.3-51.7) % Smith % (Auto) (4.7-12.5) % Eos % (Auto) (0.7-5.8) Baso % (Auto) (0.1-1.2) % Neut # (Auto) (1.56-6.13) K/mm3 Lymph # (Auto) (1.18-3.74) K/mm3 Smith # (Auto) (0.24-0.36) K/mm3 Eos # (Auto) (0.04-0.36) K/mm3 Baso # (Auto) (0.01-0.08) K/mm3 PT (9.7-12.0) SECONDS INR Sodium 144 (136-145) mEq/L Potassium 3.5 (3.5-5.1) mEq/L Chloride 107 (98-107) mEq/L Carbon Dioxide 25 (21-32) mEq/L Anion Gap 15.5 H (5-15) BUN 12 (7-18) mg/dL Creatinine 0.6 (0.55-1.02) mg/dL Est Cr Clr Drug Dosing 103.84 mL/min Estimated GFR (MDRD) > 60 (>60) mL/min BUN/Creatinine Ratio 20.0 H (14-18) Glucose 100 (74-106) mg/dL Calcium 8.5 (8.5-10.1) mg/dL Magnesium 2.0 (1.8-2.4) mg/dl C-Reactive Protein 7.4 H* (<1.0) mg/dL Procalcitonin ng/mL Result Diagrams: 10/01/20 05:30 10/01/20 05:30 Ramior Results Last 24 hrs: Microbiology 09/27/20 22:50 Aerobic Blood Culture - Preliminary Blood - Venous - Lab Draw NO GROWTH AFTER 3 DAYS Anaerobic Blood Culture - Final 09/27/20 22:45 Aerobic Blood Culture - Preliminary Blood - Venous NO GROWTH AFTER 3 DAYS Anaerobic Blood Culture - Final Sepsis Event Note - Evaluation Sepsis Screening Result: No Definite Risk - Focused Exam Vital Signs: Vital Signs Temp Pulse Resp BP Pulse Ox 10/01/20 09:22 36.8 C 85 14 117/68 94 L 10/01/20 00:30 36.8 C 94 18 131/69 95 - Problem List Review Problem List Initiated/Reviewed/Updated: Yes - My Orders Last 24 Hours: My Active Orders 10/01/20 18:00 Warfarin [Coumadin] 7.5 mg PO QPM - Assessment Assessment:: Assessment - 09/28/20 (admitted late 09/27/20) * Presented to ED on 09/27/20 with back pain, chest pain, shortness of breath * Has been feeling poor since August 31 and was diagnosed with Covid on 09/17/2026. * Was taken off isolation precautions by her [facility] caseworker protective services. * Reports cough, fever, and chills at home along with generalized weakness. * Twelve-lead EKG obtained in ED shows sinus rhythm at 92 bpm with a prolonged QTC * She is afebrile but tachycardic and not requiring oxygen. * Labs in ED: * WBC 15.98 * Hemoglobin 13.9 * Platelet 422 * Neutrophils elevated at 12.84 * D-dimer 1.06 * Sodium 140 * Potassium 3.5 * Anion gap 14.5 * BUN 11, creatinine 0.9, GFR greater than 60 * Glucose 115 * Magnesium 2.0 * Bilirubin 0.7 * AST 23 ALT 44 alkaline phosphatase 66 * Troponin less than 0.017 * CRP 23.6 * Albumin 3.1 * Lactic acid 0.9 * TSH 1.745. * She is given IV fluids, Zofran, Dilaudid * CT angiogram obtained 09/27/20: * 1. Possible minimal pulmonary embolism within a subsegmental branch within the left lower lung. * 2. Focal consolidation within the left lower chest possibly due to infarct or pneumonia. * 3. 6 mm nodule within the right upper lung as well as mild mediastinal and hilar adenopathy which is nonspecific. Follow-up contrast-enhanced study could be considered in 6 months. This would occur in March 2021. * 4. Other findings as noted above which are nonacute. * Started on IV Rocephin. Azithromycin held due to prolonged QTC. * Not requiring any oxygen * Started on Eliquis. Patient unable to afford this. Will therefore start warfarin. * History of hypoparathyroidism, obesity, hypothyroid post iodine treatment, COVID-19 infection. * Admitted observation status with telemetry for treatment of her PE, PNA, and further work-up. 09/29/20 * Reports she is feeling better but still dyspneic at times * Not requiring oxygen * Lower extremity US for DVT negative * Would like to see Dr. Sutherland after discharge * Thyroid US: Two nodules noted within each lobe of the thyroid gland with most prominent nodules on left side. Consider repeat thyroid ultrasound study in 6 months to further evaluate for stability. * Continue current treatment plan * Labs today: * WBC 9.82. * Hemoglobin 13.2. * Platelets 392. * INR 1.20. * Sodium 145. * Potassium 3.6. * Anion gap 11.6. * GFR greater than 60. * Magnesium 2.1. * CRP 18.1. * Continue doxycycline/rocephin * Discharge pending INR in therapeutic range 09/30/20 * Continued dyspnea at times, especially with exertion. * Still not requiring all oxygen. * Continues to have left flank pain, musculoskeletal nature. * Labs today: * WBC 9.61. * Platelet 414. * Neutrophil 6.60. * INR 1.43. * Sodium 142. * Potassium 3.7. * GFR greater than 60. * Glucose 107. * Calcium 8.4. * Magnesium 1.9. * CRP 11.6. * Continue current treatment plan * Discharge anticipated in 1-2 days or until INR is therapeutic. 10/01/20 SOB improving; no O2 needed INR, 1.88 DC likely on 10/02/20. - Plan Plan:: Post-COVID syndrome Pulmonary embolism Pneumonia * Rocephin Q24H * doxycycline BID * PT consult * Continue Eliquis 5mg BID until INR is 2 * Continue warfarin - pharmacy to dose * Follow INR * Monitor need for oxygen * Pain medications as ordered * IS/Acapella * RT consultation * PRN robitussin DM * Repeat CXR today * Consider PO antibiotics pending CXR results Mass of left lung Nodule of left lung * PCP follow-up * Dr. Adamson recommending repeat contrast enhanced chest CT in March 2021 Thyroid lesion * Thyroid US obtained * PCP follow-up * Consider repeat thyroid US in 6 months to further evaluate stability Code status: Full code PCP: None - needs to establish DVT Prophylaxis: Eliquis and starting warfarin Social: Patient reports working 2 jobs and having difficulty making ends meet. SW consult placed. Disposition: Admitted observation status on telemetry for management of PE, PNA, and further workup. Upgraded to inpatient on 09/29/20. Approaching DC, INR 1.88; continue current management.
[2020-10-01] MEDS ORDERED: Warfarin 7.5 MG Tab PO SCH (18:00)
[2020-10-02] MEDS: Apixaban 5 MG Tab PO SCH (05:46)
[2020-10-02] MEDS: Piperacillin/Tazobactam 4.5 GM in Sodium Chloride 0.9% 100 ML IV SCH ×4 (05:47→13:26)
[2020-10-02] MEDS ORDERED: Dicyclomine 10 MG Cap PO PRN (11:11)
--- NOTE | 2020-10-02 15:51 | PCM.DCSUM1 ---
Discharge Summary - Hospital Course HPI Initial Comments: This is a 50-year-old female who presents to ED on the evening hours of 09/27/2020 complaining of back pain, chest pain, and shortness of breath. She reports the symptoms started a few days ago however she has been feeling poorly since August 31. She states that she has had worsening generalized weakness, fever, chills, and not feeling well. Was diagnosed with COVID-19 about 2 weeks ago and has been home since then. The state has cleared her from her quarantine but she continues to feel bad. She reports she has back pain and has now developed chest pain and shortness of breath. She reports she has coughing fits at times and has had a fever and chills at home. She reports generalized weakness and just does not feel well. Denies any prior heart disease, diabetes, hypertension, or hypercholesterolemia. No history of DVT, PE, asthma, or COPD. She does not smoke. In the ED twelve-lead EKG is obtained showing a sinus rhythm at 92 bpm with a prolonged QTC. There are no signs of any ischemia. Temp is 97.6. Pulse 107. Respirations 20. Blood pressure 137/85. Pulse ox 96%. Labs are obtained showing a leukocytosis of 15.98. Hemoglobin 13.9. She is normocytic. Platelets are elevated at 422,000. Neutrophils are elevated at 12.84. D-dimer is 1.06. Sodium 140. Potassium 3.5. Chloride 101. Carbon oxide 28. Anion gap is 14.5. BUN is 11. Creatinine 0.9. GFR greater than 60. Glucose is 115. Calcium 8.8. Magnesium 2.0. Bilirubin 0.7. AST is 23, ALT 44, alkaline phosphatase 66. Troponin is less than 0.017. CRP is very high at 23.6. Albumin is low at 3.1. Lactic acid is low at 0.9 and TSH is 1.745. She is given IV fluids, Zofran for nausea, Dilaudid for pain, and a CT angiogram of her chest is obtained.This is interpreted by Dr. Adamson, radiologist, as: 1. Possible minimal pulmonary embolism within a subsegmental branch within the left lower lung. 2. Focal consolidation within the left lower chest possibly due to infarct or pneumonia. 3. 6 mm nodule within the right upper lung as well as mild mediastinal and hilar adenopathy which is nonspecific. Follow-up contrast- enhanced study could be considered in 6 months. This would occur in March 2021. 4. Other findings as noted above which are nonacute. Cultures were obtained and patient started on Rocephin. Plan will start azithromycin but she was given Zofran and her QT is already prolonged. Per the ED note patient is aware of her thyroid problems that she has a history of hyperthyroidism which was treated with iodine. She carries a history of hypoparathyroidism, obesity, iodine treatment of thyroid, prior Covid infection. She is a full code. She reportedly does not have a primary care provider. Assessment - 09/28/20 (admitted late 09/27/20) * Presented to ED on 09/27/20 with back pain, chest pain, shortness of breath * Has been feeling poor since August 31 and was diagnosed with Covid on 09/17/2026. * Was taken off isolation precautions by her [facility] case assembler. * Reports cough, fever, and chills at home along with generalized weakness. * Twelve-lead EKG obtained in ED shows sinus rhythm at 92 bpm with a prolonged QTC * She is afebrile but tachycardic and not requiring oxygen. * Labs in ED: * WBC 15.98 * Hemoglobin 13.9 * Platelet 422 * Neutrophils elevated at 12.84 * D-dimer 1.06 * Sodium 140 * Potassium 3.5 * Anion gap 14.5 * BUN 11, creatinine 0.9, GFR greater than 60 * Glucose 115 * Magnesium 2.0 * Bilirubin 0.7 * AST 23 ALT 44 alkaline phosphatase 66 * Troponin less than 0.017 * CRP 23.6 * Albumin 3.1 * Lactic acid 0.9 * TSH 1.745. * She is given IV fluids, Zofran, Dilaudid * CT angiogram obtained 09/27/20: * 1. Possible minimal pulmonary embolism within a subsegmental branch within the left lower lung. * 2. Focal consolidation within the left lower chest possibly due to infarct or pneumonia. * 3. 6 mm nodule within the right upper lung as well as mild mediastinal and hilar adenopathy which is nonspecific. Follow-up contrast-enhanced study could be considered in 6 months. This would occur in March 2021. * 4. Other findings as noted above which are nonacute. * Started on IV Rocephin. Azithromycin held due to prolonged QTC. * Not requiring any oxygen * Started on Eliquis. Patient unable to afford this. Will therefore start warfarin. * History of hypoparathyroidism, obesity, hypothyroid post iodine treatment, COVID-19 infection. * Admitted observation status with telemetry for treatment of her PE, PNA, and further work-up. Post-COVID syndrome Pulmonary embolism Pneumonia * Rocephin Q24H * Start doxycycline BID * PT consult * Continue Eliquis 5mg BID until INR is 2 * Start warfarin - pharmacy to dose * Follow INR * Monitor need for oxygen * Pain medications as ordered * IS/Acapella * RT consultation * PRN robitussin DM Mass of left lung Nodule of left lung * PCP follow-up * Dr. Adamson recommending repeat contrast enhanced chest CT in March 2021 Thyroid lesion * Thyroid US * PCP follow-up Code status: Full code PCP: None - needs to establish DVT Prophylaxis: Eliquis Social: Patient reports working 2 jobs and having difficulty making ends meet. SW consult placed. Disposition: Admitted observation status on telemetry for management of PE, PNA, and further workup. Diagnosis: Stroke: No - Discharge Data Discharge Date: 10/02/20 Discharge Disposition: Home, Self-Care 01 Condition: Good - Referral to Home Health Primary Care Physician: Marlon Long MD - Patient Summary/Data Consults: Consultations 09/28/20 07:27 Respiratory Care Assess and Treatment [CONS] Routine 09/28/20 10:20 Consult to Physical Therapy [PT Evaluation and Treatment] [CONS] Routine 09/28/20 10:21 Consult to Case Management/Licensed Esthetician [CONS] Routine - Patient Instructions Diet: Usual Diet as Tolerated Diet, Other: Vitamin K diet Activity: As Tolerated Driving: May Drive Today Showering/Bathing: May Shower Other/Special Instructions: Please get INR in 2 days. You have an appointment established with Dr. Sutherland please keep that appointment. - Discharge Plan *PRESCRIPTION DRUG MONITORING PROGRAM REVIEWED*: No *COPY OF PRESCRIPTION DRUG MONITORING REPORT IN PATIENT JOSE: No Prescriptions/Med Rec: Warfarin [Coumadin] 5 mg PO QPM #30 tablet Home Medications: Home Meds Warfarin [Coumadin] 5 mg PO QPM #30 tablet 10/02/20 [Rx] Oxygen Therapy Mode: Room Air Patient Handouts: 10 Things You Can Do to Manage Your COVID-19 Symptoms at Home - CDC, Sepsis, Diagnosis, Adult, Pulmonary Embolism, Coronavirus Information 10/05/19, Venous Thromboembolism Prevention Referrals: Marlon Long MD [Primary Care Provider] - 10/10/20 9:00 am (Hospital follow-up appointment and to set up primary care.) - Discharge Summary/Plan Comment DC Time >30 min.: No - General Info Date of Service: 10/02/20 Admission Dx/Problem (Free Text: Admission Diagnosis/Problem Admission Diagnosis/Problem Pneumonia Subjective Update: Patient's INR is 2.77 today she is therapeutic. No signs of significant pneumonia or infection. White count and procalcitonin were normal. C-reactive protein has come down to 5.3. We will give her last dose of Zosyn prior to discharge. She will also get her evening dose of warfarin prior to discharge. Functional Status: Reports: Pain Controlled - Review of Systems General: Reports: No Symptoms HEENT: Reports: No Symptoms Pulmonary: Reports: No Symptoms Cardiovascular: Reports: No Symptoms Gastrointestinal: Reports: No Symptoms Musculoskeletal: Reports: No Symptoms Neurological: Reports: No Symptoms Psychiatric: Reports: No Symptoms - Patient Data Vitals - Most Recent: Last Vital Signs Temp 98.1 F 10/02/20 08:46 Pulse 85 10/02/20 11:18 Resp 20 10/02/20 11:18 BP 117/86 10/02/20 11:18 Pulse Ox 96 10/02/20 11:18 Weight - Most Recent: 233 lb 4.8 oz I&O - Last 24 hours: Intake & Output 10/02/20 10/02/20 10/02/20 06:59 14:59 22:59 Intake Total 60 360 Output Total Balance 60 360 Lab Results - Last 24 hrs: Laboratory Results - last 24 hr 10/02/20 10/02/20 10/02/20 Range/Units 06:00 06:00 06:00 WBC 9.21 (3.98-10.04) K/mm3 RBC 4.36 (3.98-5.22) M/mm3 Hgb 12.3 (11.2-15.7) gm/dl Hct 38.7 (34.1-44.9) % MCV 88.8 (79.4-94.8) fl MCH 28.2 (25.6-32.2) pg MCHC 31.8 L (32.2-35.5) g/dl RDW Std Deviation 43.7 (36.4-46.3) fL Plt Count 443 H (182-369) K/mm3 MPV 11.1 (9.4-12.3) fl Neut % (Auto) 64.5 (34.0-71.1) % Lymph % (Auto) 21.7 (19.3-51.7) % [place] % (Auto) 9.0 (4.7-12.5) % Eos % (Auto) 3.8 (0.7-5.8) Baso % (Auto) 0.8 (0.1-1.2) % Neut # (Auto) 5.94 (1.56-6.13) K/mm3 Lymph # (Auto) 2.00 (1.18-3.74) K/mm3 [place] # (Auto) 0.83 H (0.24-0.36) K/mm3 Eos # (Auto) 0.35 (0.04-0.36) K/mm3 Baso # (Auto) 0.07 (0.01-0.08) K/mm3 Manual Slide Review Not Reportable PT 29.1 H D (9.7-12.0) SECONDS INR 2.77 Sodium 144 (136-145) mEq/L Potassium 3.9 (3.5-5.1) mEq/L Chloride 108 H (98-107) mEq/L Carbon Dioxide 25 (21-32) mEq/L Anion Gap 14.9 (5-15) BUN 12 (7-18) mg/dL Creatinine 0.7 (0.55-1.02) mg/dL Est Cr Clr Drug Dosing 89.01 mL/min Estimated GFR (MDRD) > 60 (>60) mL/min BUN/Creatinine Ratio 17.1 (14-18) Glucose 100 (74-106) mg/dL Calcium 8.4 L (8.5-10.1) mg/dL Magnesium 2.0 (1.8-2.4) mg/dl C-Reactive Protein 5.3 H* (<1.0) mg/dL MILIND Results - Last 24 hrs: Microbiology 09/27/20 22:50 Aerobic Blood Culture - Preliminary Blood - Venous - Lab Draw NO GROWTH AFTER 4 DAYS Anaerobic Blood Culture - Final 09/27/20 22:45 Aerobic Blood Culture - Preliminary Blood - Venous NO GROWTH AFTER 4 DAYS Anaerobic Blood Culture - Final Med Orders - Current: Current Medications Albuterol/Ipratropium (Albuterol/Ipratropium 3.0-0.5 Mg/3 Ml Neb Soln) 3 ml NEB Q4H PRN PRN Reason: Shortness Of Breath/wheezing Guaifenesin/Phenylephrine HCl (Guaifenesin/Dextromethorphan 100-10 Mg/5 Ml Soln 5 Ml Cup) 10 ml PO TID PRN PRN Reason: Cough Hydromorphone HCl (Hydromorphone 0.5 Mg/0.5 Ml Syringe) 0.5 mg IVPUSH Q2H PRN PRN Reason: Pain (severe 7-10) Piperacillin Sod/Tazobactam (Sod 4.5 gm/ Sodium Chloride) 100 mls @ 25 mls/hr IV Q8H [facility] Last Admin: 10/02/20 13:26 Dose: 25 mls/hr Documented by: Ibuprofen (Ibuprofen 600 Mg Tab) 600 mg PO Q6H PRN PRN Reason: Pain (moderate 4-6) Last Admin: 09/28/20 21:51 Dose: 600 mg Documented by: Ondansetron HCl (Ondansetron 4 Mg/2 Ml Sdv) 4 mg IV Q6H PRN PRN Reason: Nausea/Vomiting Sodium Chloride (Sodium Chloride 0.9% 10 Ml Syringe) 10 ml FLUSH ASDIRECTED PRN PRN Reason: Keep Vein Open Warfarin Sodium (Pharmacy To Dose - Warfarin) 1 dose .XX ASDIRECTED PRN PRN Reason: RX TO DOSE WARFARIN Warfarin Sodium (Warfarin 5 Mg Tab) 5 mg PO QPM [facility] Stop: 10/02/20 18:01 Discontinued Medications Apixaban (Apixaban 5 Mg Tab) 5 mg PO ONETIME ONE Stop: 09/27/20 21:49 Last Admin: 09/27/20 22:24 Dose: 5 mg Documented by: Apixaban (Apixaban 5 Mg Tab) 5 mg PO BID [facility] Last Admin: 10/02/20 05:46 Dose: Not Given Documented by: Dicyclomine HCl (Dicyclomine 10 Mg Cap) 10 mg PO QIDACANDBED PRN PRN Reason: Abdominal Pain Doxycycline Hyclate (Doxycycline 100 Mg Vial) Confirm Administered Dose 100 mg .ROUTE .STK-MED ONE Stop: 09/29/20 21:21 Last Admin: 09/29/20 22:15 Dose: Not Given Documented by: Hydromorphone HCl (Hydromorphone 0.5 Mg/0.5 Ml Syringe) 0.5 mg IVPUSH ONETIME ONE Stop: 09/27/20 19:37 Last Admin: 09/27/20 20:06 Dose: 0.5 mg Documented by: Hydromorphone HCl (Hydromorphone 1 Mg/Ml Syringe) 1 mg IVPUSH ONETIME ONE Stop: 09/27/20 22:02 Last Admin: 09/27/20 22:32 Dose: 1 mg Documented by: Hydromorphone HCl (Hydromorphone 1 Mg/Ml Syringe) 1 mg IVPUSH Q2H PRN PRN Reason: Pain Sodium Chloride (Normal Saline) 1,000 mls @ 1,000 mls/hr IV .BOLUS [facility] Last Admin: 09/27/20 20:06 Dose: 1,000 mls/hr Documented by: Sodium Chloride (Normal Saline) 100 mls @ 60 mls/hr IV ASDIRECTED [facility] Last Admin: 09/27/20 21:23 Dose: 60 mls/hr Documented by: Ceftriaxone Sodium 2 gm/ (Sodium Chloride) 100 mls @ 200 mls/hr IV ONETIME ONE Stop: 09/27/20 22:16 Last Admin: 09/27/20 23:08 Dose: 200 mls/hr Documented by: Azithromycin 500 mg/ Sodium (Chloride) 250 mls @ 250 mls/hr IV ONETIME ONE Stop: 09/27/20 22:47 Last Admin: 09/27/20 22:42 Dose: Not Given Documented by: Ceftriaxone Sodium 2 gm/ (Sodium Chloride) 100 mls @ 200 mls/hr IV Q24H [facility] Last Admin: 09/29/20 21:27 Dose: 200 mls/hr Documented by: Azithromycin 500 mg/ Sodium (Chloride) 250 mls @ 250 mls/hr IV Q24H [facility] Doxycycline Hyclate 100 mg/ (Sodium Chloride) 100 mls @ 100 mls/hr IV Q12H [facility] Last Admin: 09/30/20 10:01 Dose: 100 mls/hr Documented by: Piperacillin Sod/Tazobactam (Sod 4.5 gm/ Sodium Chloride) 100 mls @ 25 mls/hr IV Q8H [facility] Piperacillin Sod/Tazobactam (Sod 4.5 gm/ Sodium Chloride) 100 mls @ 200 mls/hr IV ONETIME ONE Stop: 09/30/20 13:59 Last Admin: 09/30/20 13:16 Dose: 200 mls/hr Documented by: Ibuprofen (Ibuprofen 600 Mg Tab) 600 mg PO ONETIME ONE Stop: 09/27/20 23:07 Last Admin: 09/27/20 23:33 Dose: Not Given Documented by: Iopamidol (Iopamidol 755 Mg/Ml 100 Ml Bottle) 100 ml IVPUSH ONETIME ONE Stop: 09/27/20 19:53 Last Admin: 09/27/20 21:22 Dose: 100 ml Documented by: Magnesium Hydroxide (Magnesium Hydroxide 400 Mg/5 Ml Susp 30 Ml Cup) 30 ml PO ONETIME ONE Stop: 09/28/20 17:01 Last Admin: 09/28/20 17:14 Dose: 30 ml Documented by: Ondansetron HCl (Ondansetron 4 Mg/2 Ml Sdv) 4 mg IVPUSH ONETIME ONE Stop: 09/27/20 19:36 Last Admin: 09/27/20 20:06 Dose: 4 mg Documented by: Polyethylene Glycol (Polyethylene Glycol 3350 Powder 17 Gm Packet) 17 gm PO ONETIME ONE Stop: 09/29/20 10:31 Last Admin: 09/29/20 11:51 Dose: 17 gm Documented by: Potassium Chloride (Potassium Chloride 20 Meq Tab.Er) 40 meq PO ONETIME ONE Stop: 09/29/20 10:44 Last Admin: 09/29/20 11:50 Dose: 40 meq Documented by: Sodium Chloride (Sodium Chloride 0.9% 10 Ml Syringe) 10 ml FLUSH ASDIRECTED [facility] Last Admin: 09/27/20 21:22 Dose: 10 ml Documented by: Warfarin Sodium (Warfarin 3 Mg Tab) 6 mg PO QPM [facility] Stop: 09/28/20 18:01 Last Admin: 09/28/20 17:14 Dose: 6 mg Documented by: Warfarin Sodium (Warfarin 3 Mg Tab) 6 mg PO QPM [facility] Stop: 09/29/20 18:01 Last Admin: 09/29/20 17:57 Dose: 6 mg Documented by: Warfarin Sodium (Warfarin 7.5 Mg Tab) 7.5 mg PO QPM [facility] Stop: 09/30/20 18:01 Last Admin: 09/30/20 17:31 Dose: 7.5 mg Documented by: Warfarin Sodium (Warfarin 7.5 Mg Tab) 7.5 mg PO QPM [facility] Stop: 10/01/20 18:01 Last Admin: 10/01/20 17:08 Dose: 7.5 mg Documented by: - Exam Quality Assessment: Denies: Supplemental Oxygen General: Reports: Alert, Oriented HEENT: Reports: Pupils Equal, Mucous Membr. Moist/[place] Neck: Reports: Supple Lungs: Reports: Clear to Auscultation, Normal Respiratory Effort Cardiovascular: Reports: Regular Rate, Regular Rhythm GI/Abdominal Exam: Normal Bowel Sounds, Soft, Non-Tender, No Organomegaly, No Distention, No Abnormal Bruit Back Exam: Reports: Normal Inspection, Full Range of Motion Extremities: Normal Inspection, Normal Range of Motion, Non-Tender, No Pedal Edema, Normal Capillary Refill Psy/Mental Status: Reports: Alert, Normal Affect, Normal Mood
[2020-10-02] MEDS ORDERED: Warfarin 5 MG Tab PO SCH (18:00)
== END 2020-10-02 18:05 | disposition home or self-care (01) | DRG 175 ==
LOC: JD.ED 19:01 → JD.MS 22:14 → OBSVTOIN 09-29 08:54
PROVIDERS: ADMIT Family Medicine; ATTEND Family Medicine
DX: I26.93 Single subsegmental thrombotic pulmonary embolism without acute cor pulmonale (principal); J12.82 Pneumonia due to coronavirus disease 2019; B94.8 Sequelae of other specified infectious and parasitic diseases; R53.1 Weakness; R91.8 Other nonspecific abnormal finding of lung field; R91.1 Solitary pulmonary nodule; E66.9 Obesity, unspecified; Z90.49 Acquired absence of other specified parts of digestive tract; E04.1 Nontoxic single thyroid nodule; E07.89 Other specified disorders of thyroid; E20.9 Hypoparathyroidism, unspecified; Z88.5 Allergy status to narcotic agent
CPT/HCPCS: 36415; 71046; 71046-26; 71275; 71275-26; 76536; 76536-26; 80048; 80053; 83605; 83735; 84145; 84443; 84484; 85025; 85379; 85610; 86140; 87040; 93005; 93010; 93970; 93970-26; 94667; 96365; 96366; 96367; 96374; 96375; 96376; 97161-GP; 99220; 99232; 99233; 99238; 99285; 99285-25; A9270-GY; G0378; J0696; J1170; J2405; J2543; J3490; J7030; Q9967

== ENCOUNTER 2024-04-07 12:28 | Emergency (ER) | payer SELFPAY ==
[2024-04-07 14:21] LABS: BASOPHILS PERCENT AUTO 0.5 % (0.0-1.0); EOSINOPHILS ABSOLUTE AUTO 0.1 K/mm3 (0.0-0.4); EOSINOPHILS PERCENT AUTO 0.7 % (0.0-6.0); HEMATOCRIT 45.9 % (37.0-47.0); HEMOGLOBIN 15.2 gm/dl (12.0-16.0); IMMATURE GRAN ABSOLUTE AUTO 0.05 K/mm3 (0.00-0.05); IMMATURE GRAN PERCENT AUTO 0.6 % (0.0-0.4); LYMPHOCYTES ABSOLUTE AUTO 0.8 K/mm3 (1.0-4.8); LYMPHOCYTES PERCENT AUTO 9.1 % (24.0-44.0); MEAN CORPUSCULAR HEMOGLOBIN 29.6 pg (28.0-32.0); MEAN CORPUSCULAR HGB CONC 33.1 g/dl (32.0-36.0); MEAN CORPUSCULAR VOLUME 89.3 fl (83.0-99.0); MEAN PLATELET VOLUME 10.8 fl (9.4-12.3); MONOCYTES ABSOLUTE AUTO 0.5 K/mm3 (0.0-0.8); MONOCYTES PERCENT AUTO 5.8 % (0.0-8.0); NEUTROPHILS ABSOLUTE AUTO 6.8 K/mm3 (1.8-7.7); NEUTROPHILS PERCENT AUTO 83.3 % (41.0-71.0); PLATELET COUNT,PLT 266 K/mm3 (150-400); RED BLOOD CELL COUNT 5.14 M/mm3 (4.10-5.30); WHITE BLOOD CELL COUNT,WBC 8.21 K/mm3 (3.9-11.3)
[2024-04-07 14:35] LABS: CORONAVIRUS COVID-19 NAA NEGATIVE (NEGATIVE); INFLUENZA A NAA NEGATIVE (NEGATIVE); RESPIRATORY SYNCYTIAL VIR NAA NEGATIVE (NEGATIVE)
[2024-04-07 14:41] LABS: A/G RATIO 0.7 (1-2); ALBUMIN 3.3 g/dl (3.4-5.0); ANION GAP 13.2 (5-15); BILIRUBIN TOTAL 0.7 mg/dL (0.2-1.0); CALCIUM 8.7 mg/dL (8.5-10.1); EST CRCL DRUG DOSING (CG) 59.51 mL/min; MAGNESIUM 1.9 mg/dL (1.8-2.4); POTASSIUM,K 3.2 mEq/L (3.5-5.1); PROTEIN TOTAL,TP 7.8 g/dl (6.4-8.2)
[2024-04-07] MEDS: Ondansetron 4 MG/2 ML SDV IVPUSH ONE (15:23)
[2024-04-07] MEDS: Sodium Chloride 0.9% 1,000 ML IV ONE (15:23)
[2024-04-07] MEDS: Potassium Chloride 20 MEQ Tab.ER PO ONE (16:51)
== END 2024-04-07 16:45 | disposition home or self-care (01) ==
LOC: JD.ED 12:28
DX: J06.9 Acute upper respiratory infection, unspecified (principal); R11.2 Nausea with vomiting, unspecified; E66.9 Obesity, unspecified; Z86.16 Personal history of COVID-19; Z90.49 Acquired absence of other specified parts of digestive tract; Z88.5 Allergy status to narcotic agent; Z88.6 Allergy status to analgesic agent; Z68.41 Body mass index [BMI] 40.0-44.9, adult
CPT/HCPCS: 0241U; 36415; 71046; 80053; 83735; 85025; 96361; 96374; 99285; A9270; J2405; J7030; 99284